=== PATIENT | female | born 1960 | race Caucasian/White ===

== ENCOUNTER 2021-07-09 16:38 | Inpatient (IN) | payer MEDICARE, OTHER ==
[~2021-07-09] VITALS: Ht 170.2 cm; Wt 55.7 kg
[2021-07-09 17:37] VITALS: BP 170/81
[2021-07-09] MEDS ORDERED: TEMAZEPAM 15 MG CAPSULE PO PRN (17:45)
[2021-07-09] MEDS: IV NORMAL SALINE 1000ML BAG 1,000 ML IV SCH (17:54)
[2021-07-09] MEDS ORDERED: POTASSIUM CHLORIDE 20 MEQ TABLET.ER. PO ONE (18:00)
[2021-07-09] MEDS: ONDANSETRON PF 4 MG/2 ML VIAL. IVP PRN (18:02)
--- NOTE | 2021-07-09 18:54 | HP ---
DATE OF SERVICE: 07/09/2021 ADMIT DATE: 07/09/2021 CHIEF COMPLAINT: GI bleed, nausea, vomiting, diarrhea, weakness, recent cholecystectomy. HISTORY OF PRESENT ILLNESS: The patient is a pleasant 60-year-old female who had a laparoscopic cholecystectomy at [facility] 10 days ago, presented to the ER with some rectal bleeding. She also has some nausea, vomiting, and diarrhea. They checked her hemoglobin, it is down to 11.6 from 15.4 just a few days ago. She also has hypokalemia. I discussed the case with the ER physician. We have transferred the patient to the room 563 where she is currently being examined. PAST MEDICAL HISTORY: Laparoscopic cholecystectomy 10 days ago. ALLERGIES: None. FAMILY HISTORY: Diabetes. SOCIAL HISTORY: She does not drink, smoke or take drugs. MEDICATIONS: Reviewed, please refer to the MRAD. REVIEW OF SYSTEMS: GENERAL: No history of weight change, weakness or fevers. SKIN: No bruising, hair changes or rashes. EYES: No blurred, double or loss of vision. NOSE AND THROAT: No history of nosebleeds, hoarseness or sore throat. HEART: No history of palpitations, chest pain or shortness of breath on exertion. LUNGS: Denies cough, hemoptysis, wheezing or shortness of breath. GASTROINTESTINAL: She complains of nausea, vomiting, diarrhea and bloody stools. GENITOURINARY: No history of frequency, urgency, hesitancy or nocturia. NEUROLOGIC: Denies history of numbness, tingling, tremor or weakness. PSYCHIATRIC: No history of panic, anxiety or depression. ENDOCRINE: No history of heat or cold intolerance, polyuria or polydipsia. EXTREMITIES: Denies muscle weakness, joint pain, pain on walking or stiffness. PHYSICAL EXAMINATION: VITALS: Within normal limits and are stable. GENERAL: No apparent distress. Alert and oriented. HEENT: Normal cephalic atraumatic, external auditory canals are patent. Eyes: Extraocular muscles are intact, pupils are equally round and reactive to light and accommodation. MUSCULOSKELETAL: Well developed, well nourished, good range of motion. ENDOCRINE: No thyromegaly was palpated. LYMPHATICS: No cervical chain or axillary nodes were noted. HEMATOPOIETIC: No bruising. NECK: Supple, no JVD, no thyromegaly was noted. LUNGS: Clear to auscultation in all lung ann without rhonchi or wheezing. HEART: RRR, S1, S2 present. Peripheral pulses intact, no obvious murmurs were noted. ABDOMEN: She has clean, dry, intact trocar sites x 3. EXTREMITIES: Without any cyanosis, clubbing, or edema. Pedal pulses intact, Homans sign is negative. NEUROLOGIC: Normal speech, normal tone. A and O x 3, moves all extremities, no obvious focal deficits. PSYCHIATRIC: Normal affect, normal mood. Stable. SKIN: No ulcerations or rashes, good skin turgor, no jaundice. VASCULAR: Good capillary refill, neurovascular bundle appears to be intact. LABORATORY DATA: Shows a hemoglobin of 11.6, potassium is 2.5. ASSESSMENT AND PLAN: Gastrointestinal bleed, nausea, vomiting, anemia, hypokalemia. The patient has been admitted. We will trend her hemoglobin. PRN Zofran. Consult Dr. Kemp. Home meds. DVT prophylaxis. Full code. Gentle IV fluids. ekg monitor. Trend labs. PAULINE/HERNAN DR: PAULINE/katy TID: [id number]
[2021-07-09 19:00] VITALS: BP 175/88
[2021-07-09] MEDS: AA 4.25 %/CALCIUM/LYTES/D5W 1,000 ML IV SCH (20:25)
[2021-07-09 23:00] VITALS: BP 165/85
[2021-07-10 03:00] VITALS: BP 188/86
[2021-07-10] MEDS: IV NORMAL SALINE 1000ML BAG 1,000 ML IV SCH (05:08)
[2021-07-10 06:10] LABS: BASO % 0 % (0-3); EOS # 0.1 x10^3/uL (0.0-0.7); EOS % 1 % (0-3); HEMATOCRIT 29.6 % (36.0-47.0); LYMPH # 1.5 x10^3/uL (1.0-4.8); LYMPH % 15 % (24-48); MEAN CORPUSCULAR HEMOGLOBIN 28 pg (25-35); MEAN CORPUSCULAR HGB CONC 34 g/dL (31-37); MEAN CORPUSCULAR VOLUME 84 fL (79-100); MONO # 0.5 x10^3/uL (0.0-1.1); MONO % 5 % (0-9); NEUT # 7.9 x10^3/uL (1.8-7.7); NEUT % 78 % (31-73); PLATELET COUNT 131 x10^3/uL (140-400); RED BLOOD COUNT 3.53 x10^6/uL (3.50-5.40); RED CELL DISTRIBUTION WIDTH 15.6 % (11.5-14.5); WHITE BLOOD COUNT 10.1 x10^3/uL (4.0-11.0)
[2021-07-10] MEDS: PANTOPRAZOLE IV PUSH 40 MG VIAL. IVP SCH (06:22)
[2021-07-10] MEDS: AA 4.25 %/CALCIUM/LYTES/D5W 1,000 ML IV SCH (06:22)
[2021-07-10 06:32] LABS: CALCIUM 8.2 mg/dL (8.5-10.1); CREATININE 0.8 mg/dL (0.6-1.0); GFR 73.2
[2021-07-10 06:38] LABS: POTASSIUM 2.9 mmol/L (3.5-5.1)
[2021-07-10 07:00] VITALS: BP 180/83
[2021-07-10] MEDS ORDERED: POTASSIUM CHLORIDE 20 MEQ TABLET.ER. PO ONE (08:00)
--- NOTE | 2021-07-10 09:36 | PDOC2 ---
GI CONSULT Date of Service: DATE: 07/10/21 TIME: 09:15 Reason For Consult: GI bleed HPI: HPI: 60 y/o female who is not forthcoming with history. Reviewed [facility] notes: to ER there w/ n/v, abd pain, and dark/black diarrhea. Recent cholecystectomy @ [facility]. Concern for not eating/drinking and not being able to care for self at home. We are asked to see for possible GI bleed. She has not noted any bleeding nor has she stooled since arriving at [facility]. To me, denies reflux/heartburn, dysphagia, n/v, abd pain, diarrhea, constipation, hematochezia, melena, and weight loss. Suspect historian. Tells me stool were "dark brown." No previous EGD. Reports having a colonoscopy at some point - unclear details. Said she had gallstones. Denies liver, pancreas, and PUD history. Denies use of NSAIDs and blood-thinning medications. On CT @ [facility]: interval post cholecystectomy changes with a new small ill-defined fluid collection in subcapsular hepatic segment adjacent to GB fossa (ddx: hematoma, biloma, abscess), borderline right colonic wall thickening w/ adjacent fat stranding, trace pelvic hemoperitoenum (likely postsurgical). Labs there: negative COVID, +Hemoccult, K 2.5, Hgb 11.6, bili 1.8, BUN 51, Cr 1.2, normal lipase, normal lactic. ER note from 06/19/21 mentions h/o fever, chills, cough, abd pain after COVID vaccine, falls at home, possible syncope, possible constipation, and "psoriasis acting up." PMH: PMH: per other notes: HTN, HLD, DM, hypothyroidism, ?psoriasis cholecystectomy, hysterectomy FH: Family History: No pertinent hx (difficult to obtain) Social History: Smoke: Quit (per other notes) ROS: Difficult to obtain. Vitals: Vitals: Vital Signs Date Time Temp Pulse Resp B/P (MAP) Pulse Ox O2 Delivery O2 Flow Rate FiO2 07/10/21 07:00 98.3 79 24 180/83 (115) 97 Room Air 98.3 Labs: Labs: Laboratory Tests Test 07/10/21 05:20 White Blood Count 10.1 x10^3/uL (4.0-11.0) Red Blood Count 3.53 x10^6/uL (3.50-5.40) Hemoglobin 10.0 g/dL (12.0-15.5) Hematocrit 29.6 % (36.0-47.0) Mean Corpuscular Volume 84 fL (79-100) Mean Corpuscular Hemoglobin 28 pg (25-35) Mean Corpuscular Hemoglobin Concent 34 g/dL (31-37) Red Cell Distribution Width 15.6 % (11.5-14.5) Platelet Count 131 x10^3/uL (140-400) Neutrophils (%) (Auto) 78 % (31-73) Lymphocytes (%) (Auto) 15 % (24-48) Monocytes (%) (Auto) 5 % (0-9) Eosinophils (%) (Auto) 1 % (0-3) Basophils (%) (Auto) 0 % (0-3) Neutrophils # (Auto) 7.9 x10^3/uL (1.8-7.7) Lymphocytes # (Auto) 1.5 x10^3/uL (1.0-4.8) Monocytes # (Auto) 0.5 x10^3/uL (0.0-1.1) Eosinophils # (Auto) 0.1 x10^3/uL (0.0-0.7) Basophils # (Auto) 0.0 x10^3/uL (0.0-0.2) Sodium Level 141 mmol/L (136-145) Potassium Level 2.9 mmol/L (3.5-5.1) Chloride Level 104 mmol/L (98-107) Carbon Dioxide Level 27 mmol/L (21-32) Anion Gap 10 (6-14) Blood Urea Nitrogen 38 mg/dL (7-20) Creatinine 0.8 mg/dL (0.6-1.0) Estimated GFR (Cockcroft-Gault) 73.2 Glucose Level 151 mg/dL (70-99) Calcium Level 8.2 mg/dL (8.5-10.1) Allergies: Coded Allergies: No Known Drug Allergies (Unverified , 07/09/21) Medications: Current Medications Medications (Trade) Dose Ordered Sig/Josué Route PRN Reason Start Time Stop Time Status Last Admin Dose Admin Sodium Chloride 1,000 ml @ 75 mls/hr [id number] IV 07/09/21 18:00 07/09/21 17:54 Potassium Chloride (Klor-Con) 40 meq 1X ONCE PO 07/09/21 18:00 07/09/21 18:01 DC 07/09/21 17:54 Temazepam (Restoril) 15 mg PRN QHS PRN PO INSOMNIA 07/09/21 17:45 07/09/21 20:25 Ondansetron HCl (Zofran) 4 mg PRN Q6HRS PRN IVP NAUSEA/VOMITING 07/09/21 17:45 07/09/21 18:02 Pantoprazole Sodium (PROTONIX VIAL for IV PUSH) 40 mg DAILYAC IVP 07/10/21 07:30 07/10/21 06:22 Amino Acids/ Electrolytes/ Dextrose 1,000 ml @ 80 mls/hr [id number] IV 07/09/21 18:45 07/10/21 06:22 Potassium Chloride (Klor-Con) 40 meq 1X ONCE PO 07/10/21 08:00 07/10/21 08:01 DC 07/10/21 08:34 Imaging: Imaging: see HPI PE: GEN: sitting on edge of bed, won't make eye contact, slow to respond to questions, gives one word answers if answers at all HEENT: Atraumatic, PERRL LUNGS: CTAB HEART: RRR ABD: difficult exam - pt remains sitting on edge of bed - soft, seems non- tender, quiet BS EXTREMITY: No edema SKIN: +tattoos NEURO/PSYCH: awake and alert, decreased mentation A/P: A/P: ?n/v ?abd pain ?diarrhea/dark stools Mild anemia - Hgb drifitng, +Hemoccult Abnormal CT - interval post cholecystectomy changes with a new small ill- defined fluid collection in subcapsular hepatic segment adjacent to GB fossa, borderline right colonic wall thickening w/ adjacent fat stranding, trace pelvic hemoperitoenum CRC screen - she reports having colonoscopy in the past, details unclear Recent cholecystectomy COVID negative HTN, hypokalemia - per primary -- Difficult historian. Has clears ordered for breakfast - await this. On IV PPI - agree. Follow labs. Check anemia parameters. Monitor stools and for bleeding. Check stool studies. Will review CT findings of fluid collection and hemoperitoneum with Dr. Kemp - additional recs pending. MAIKOL FELICIANO Jul 10, 2021 09:36
--- NOTE | 2021-07-10 10:04 | PDOC ---
[employer] PROGRESS NOTE Date of Service DOS: DATE: 07/10/21 TIME: 10:04 Chief Complaint Chief Complaint A/P: Blood in stool - GI consulted N/V/D - improved Anemia - +Hemoccult Thrombocytopenia - likely from underlying previously undiagnosed liver disease Abnormal CT - interval post cholecystectomy changes with a new small ill- defined fluid collection in subcapsular hepatic segment adjacent to GB fossa, borderline right colonic wall thickening w/ adjacent fat stranding, trace pelvic hemoperitoenum Recent cholecystectomy COVID negative HTN, hypokalemia - check mag, replace History of Present Illness History of Present Illness Ms Murphy is a 60-year-old female who had a laparoscopic cholecystectomy at [facility] 10 days ago, presented to the ER at [facility] with some rectal bleeding. She also has some nausea, vomiting, and diarrhea. She has been confused and unable to care for herself at home. They checked her hemoglobin, it is down to 11.6 from 15.4 just a few days ago. She also has hypokalemia and thrombocytopenia. Confused this morning. No pain complaints. Not oriented K 2.9 Vitals/I&O Vitals/I&O: Vital Signs Date Time Temp Pulse Resp B/P (MAP) Pulse Ox O2 Delivery O2 Flow Rate FiO2 07/10/21 07:00 98.3 79 24 180/83 (115) 97 Room Air 98.3 I & O 07/09/21 07/09/21 07/10/21 15:00 23:00 07:00 Intake Total 120 ml 400 ml Balance 120 ml 400 ml Physical Exam Lungs: Clear Abdomen: Normal bowel sounds Labs Labs: Laboratory Tests Test 07/10/21 05:20 White Blood Count 10.1 x10^3/uL (4.0-11.0) Red Blood Count 3.53 x10^6/uL (3.50-5.40) Hemoglobin 10.0 g/dL (12.0-15.5) Hematocrit 29.6 % (36.0-47.0) Mean Corpuscular Volume 84 fL (79-100) Mean Corpuscular Hemoglobin 28 pg (25-35) Mean Corpuscular Hemoglobin Concent 34 g/dL (31-37) Red Cell Distribution Width 15.6 % (11.5-14.5) Platelet Count 131 x10^3/uL (140-400) Neutrophils (%) (Auto) 78 % (31-73) Lymphocytes (%) (Auto) 15 % (24-48) Monocytes (%) (Auto) 5 % (0-9) Eosinophils (%) (Auto) 1 % (0-3) Basophils (%) (Auto) 0 % (0-3) Neutrophils # (Auto) 7.9 x10^3/uL (1.8-7.7) Lymphocytes # (Auto) 1.5 x10^3/uL (1.0-4.8) Monocytes # (Auto) 0.5 x10^3/uL (0.0-1.1) Eosinophils # (Auto) 0.1 x10^3/uL (0.0-0.7) Basophils # (Auto) 0.0 x10^3/uL (0.0-0.2) Sodium Level 141 mmol/L (136-145) Potassium Level 2.9 mmol/L (3.5-5.1) Chloride Level 104 mmol/L (98-107) Carbon Dioxide Level 27 mmol/L (21-32) Anion Gap 10 (6-14) Blood Urea Nitrogen 38 mg/dL (7-20) Creatinine 0.8 mg/dL (0.6-1.0) Estimated GFR (Cockcroft-Gault) 73.2 Glucose Level 151 mg/dL (70-99) Calcium Level 8.2 mg/dL (8.5-10.1) Comment Review of Relevant I have reviewed the following items khai (where applicable) has been applied. Medications: Current Medications Medications (Trade) Dose Ordered Sig/Josué Route PRN Reason Start Time Stop Time Status Last Admin Dose Admin Sodium Chloride 1,000 ml @ 75 mls/hr [id number] IV 07/09/21 18:00 07/09/21 17:54 Potassium Chloride (Klor-Con) 40 meq 1X ONCE PO 07/09/21 18:00 07/09/21 18:01 DC 07/09/21 17:54 Temazepam (Restoril) 15 mg PRN QHS PRN PO INSOMNIA 07/09/21 17:45 07/09/21 20:25 Ondansetron HCl (Zofran) 4 mg PRN Q6HRS PRN IVP NAUSEA/VOMITING 07/09/21 17:45 07/09/21 18:02 Pantoprazole Sodium (PROTONIX VIAL for IV PUSH) 40 mg DAILYAC IVP 07/10/21 07:30 07/10/21 06:22 Amino Acids/ Electrolytes/ Dextrose 1,000 ml @ 80 mls/hr [id number] IV 07/09/21 18:45 07/10/21 06:22 Potassium Chloride (Klor-Con) 40 meq 1X ONCE PO 07/10/21 08:00 07/10/21 08:01 DC 07/10/21 08:34 Justifications for Admission Other Justification SONIA OBANDO MD Jul 10, 2021 10:04
[2021-07-10 11:00] VITALS: BP 150/80
[2021-07-10 13:04] LABS: ALBUMIN 2.8 g/dL (3.4-5.0); DIRECT BILIRUBIN 0.6 mg/dL (0.0-0.2); TOTAL BILIRUBIN 1.6 mg/dL (0.2-1.0); TOTAL PROTEIN 6.1 g/dL (6.4-8.2)
[2021-07-10 15:00] VITALS: BP 150/66
--- NOTE | 2021-07-10 15:23 | PDOC2 ---
NEUROLOGY CONSULT Date of Service DOS: DATE: 07/10/21 TIME: 15:12 Reason for Consult Reason for Consult: Encephalopathy Referring Physician Referring Physician: Dr. Coleman Source Source: Caregiver (Son), Chart review, Patient History of Present Illness History of Present Illness The patient is a 60-year-old right-handed female who has not felt well for several weeks. She has had abdominal pain, decreased appetite, fevers, chills, cough. This may have all started after second Covid vaccination on May 15. Dr. Gudino, primary care physician, saw the patient several times and lawanda a large amount of labs. She was scheduled for a CT scan at [facility] but instead the son brought her to the [facility] emergency room on 06/19. She had a CT of the head, abdomen, pelvis, as reviewed below. She then went to [facility] where she underwent a laparoscopic cholecystectomy approximately 07/01. She was released on July 07. Son notes that he could not get his mother out of bed, she was very weak, more lethargic. He brought her to the [facility] emergency department last night and she was sent down here. At [facility] she was found to have abnormal labs as listed below She had another CT abdomen and pelvis last night at [facility], as reviewed below. Dr. Gudino has been adjusting her thyroid medications. On closer questioning, patient son says that she has not driven for more than 10 years. She has been living with him for 2 years. She has been forgetful but has refused to get evaluated for this. There is no history of stroke, seizure, or head injury. 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 Past Medical History Cardiovascular: HTN Past Surgical History Past Surgical History: Breast Biopsy, Cholecystectomy (Laparoscopic, 07/01/21), Tubal Ligation Family History Family History: DM Social History Social History , lives with son, does smoke occasional cigarettes, no alcohol or street drugs. Current Medications Current Medications Current Medications Sodium Chloride 1,000 ml @ 75 mls/hr [id number] IV Last administered on 07/09at 17:54; Start 07/09/21 at 18:00 Potassium Chloride (Klor-Con) 40 meq 1X ONCE PO Last administered on 07/09/21at 17:54; Start 07/09/21 at 18:00; Stop 07/09/21 at 18:01; Status DC Temazepam (Restoril) 15 mg PRN QHS PRN PO INSOMNIA Last administered on 07/09/21at 20:25; Start 07/09/21 at 17:45 Ondansetron HCl (Zofran) 4 mg PRN Q6HRS PRN IVP NAUSEA/VOMITING Last administe red on 07/09/21at 18:02; Start 07/09/21 at 17:45 Pantoprazole Sodium (PROTONIX VIAL for IV PUSH) 40 mg DAILYAC IVP Last admini stered on 07/10/21at 06:22; Start 07/10/21 at 07:30 Amino Acids/ Electrolytes/ Dextrose 1,000 ml @ 80 mls/hr [id number] IV Last administered on 07/10/21at 06:22; Start 07/09/21 at 18:45 Potassium Chloride (Klor-Con) 40 meq 1X ONCE PO Last administered on 07/10/21at 08:34; Start 07/10/21 at 08:00; Stop 07/10/21 at 08:01; Status DC Active Scripts Active Reported No Known Medications Prior To Admisstion (Info) Each 1 Each NA Allergies Allergies: Coded Allergies: No Known Drug Allergies (Unverified , 07/09/21) ROS Review of System Negative for fever, chills, weight loss, shortness of breath, chest pain, indigestion, hematochezia, melena, and dysuria. Full 14-point review of systems is negative. Physical Exam Physical Examination General: Well-developed, well-nourished, white female, in no acute distress HEENT: Normocephalic andatraumatic. Temporal arteriespulsatile and nontender. Neck: Supple without bruit, no meningismus Musculoskeletal: Stability:see neurologic. Gait exam:see neurologic. Tone:see neurologic.Strength:see neurologic. Neurological: Mental Status: orientation, memory, attention span/concentration, language, fund of knowledge: Does not know date, thinks she is at [facility], does not know why she is here, very poor historian, names and repeats well. Cranial Nerves:Pupils equal and reactive to light, extraocular movements areintact, visual nan are full to confrontation. Facial sensation is normal. There is no facial asymmetry. Vestibulo-ocular reflex is intact. Palate elevates and tongue protrudes in midline. All other cranial related problems are negative except as mentioned before.Reflexes:2+ and symmetric with flexor plantar responses. Bilateral grasp reflexes. Motor:45/5 strength with normal tone and bulk. Coordination:Finger-nose finger and [id number] testing are normal. Rapid alternating movements and fine finger movements are intact. Gait:Not tested. Sensory:Normal pinprick, vibration, light touch, proprioception. Vitals VITALS Vital Signs Date Time Temp Pulse Resp B/P (MAP) Pulse Ox O2 Delivery O2 Flow Rate FiO2 07/10/21 11:00 97.3 89 20 150/80 (103) 96 Room Air 97.3 Labs Labs [facility], 07/09: white blood count 12.6, hemoglobin 11.6, hematocrit 35.0, potassium 2.5, BUN 51, creatinine 1.1, glucose 123, bilirubin 1.9, CPK 25, protein 6.1, albumin 3.2, Covid negative, stool occult positive. Laboratory Tests Test 07/10/21 05:20 07/10/21 11:39 White Blood Count 10.1 x10^3/uL (4.0-11.0) Red Blood Count 3.53 x10^6/uL (3.50-5.40) Hemoglobin 10.0 g/dL (12.0-15.5) Hematocrit 29.6 % (36.0-47.0) Mean Corpuscular Volume 84 fL (79-100) Mean Corpuscular Hemoglobin 28 pg (25-35) Mean Corpuscular Hemoglobin Concent 34 g/dL (31-37) Red Cell Distribution Width 15.6 % (11.5-14.5) Platelet Count 131 x10^3/uL (140-400) Neutrophils (%) (Auto) 78 % (31-73) Lymphocytes (%) (Auto) 15 % (24-48) Monocytes (%) (Auto) 5 % (0-9) Eosinophils (%) (Auto) 1 % (0-3) Basophils (%) (Auto) 0 % (0-3) Neutrophils # (Auto) 7.9 x10^3/uL (1.8-7.7) Lymphocytes # (Auto) 1.5 x10^3/uL (1.0-4.8) Monocytes # (Auto) 0.5 x10^3/uL (0.0-1.1) Eosinophils # (Auto) 0.1 x10^3/uL (0.0-0.7) Basophils # (Auto) 0.0 x10^3/uL (0.0-0.2) Sodium Level 141 mmol/L (136-145) Potassium Level 2.9 mmol/L (3.5-5.1) Chloride Level 104 mmol/L (98-107) Carbon Dioxide Level 27 mmol/L (21-32) Anion Gap 10 (6-14) Blood Urea Nitrogen 38 mg/dL (7-20) Creatinine 0.8 mg/dL (0.6-1.0) Estimated GFR (Cockcroft-Gault) 73.2 Glucose Level 151 mg/dL (70-99) Calcium Level 8.2 mg/dL (8.5-10.1) Magnesium Level 2.0 mg/dL (1.8-2.4) Iron Level 140 ug/dL (50-170) Total Iron Binding Capacity 146 ug/dL (250-450) Iron Saturation 96 % (15-34) Vitamin B12 Level 500 pg/mL (247-911) Total Bilirubin 1.6 mg/dL (0.2-1.0) Direct Bilirubin 0.6 mg/dL (0.0-0.2) Aspartate Amino Transf (AST/SGOT) 34 U/L (15-37) Alanine Aminotransferase (ALT/SGPT) 31 U/L (14-59) Alkaline Phosphatase 70 U/L (46-116) Ammonia 15 mcmol/L (11-34) Total Protein 6.1 g/dL (6.4-8.2) Albumin 2.8 g/dL (3.4-5.0) Laboratory Tests Test 07/10/21 05:20 07/10/21 11:39 White Blood Count 10.1 x10^3/uL (4.0-11.0) Red Blood Count 3.53 x10^6/uL (3.50-5.40) Hemoglobin 10.0 g/dL (12.0-15.5) Hematocrit 29.6 % (36.0-47.0) Mean Corpuscular Volume 84 fL (79-100) Mean Corpuscular Hemoglobin 28 pg (25-35) Mean Corpuscular Hemoglobin Concent 34 g/dL (31-37) Red Cell Distribution Width 15.6 % (11.5-14.5) Platelet Count 131 x10^3/uL (140-400) Neutrophils (%) (Auto) 78 % (31-73) Lymphocytes (%) (Auto) 15 % (24-48) Monocytes (%) (Auto) 5 % (0-9) Eosinophils (%) (Auto) 1 % (0-3) Basophils (%) (Auto) 0 % (0-3) Neutrophils # (Auto) 7.9 x10^3/uL (1.8-7.7) Lymphocytes # (Auto) 1.5 x10^3/uL (1.0-4.8) Monocytes # (Auto) 0.5 x10^3/uL (0.0-1.1) Eosinophils # (Auto) 0.1 x10^3/uL (0.0-0.7) Basophils # (Auto) 0.0 x10^3/uL (0.0-0.2) Sodium Level 141 mmol/L (136-145) Potassium Level 2.9 mmol/L (3.5-5.1) Chloride Level 104 mmol/L (98-107) Carbon Dioxide Level 27 mmol/L (21-32) Anion Gap 10 (6-14) Blood Urea Nitrogen 38 mg/dL (7-20) Creatinine 0.8 mg/dL (0.6-1.0) Estimated GFR (Cockcroft-Gault) 73.2 Glucose Level 151 mg/dL (70-99) Calcium Level 8.2 mg/dL (8.5-10.1) Magnesium Level 2.0 mg/dL (1.8-2.4) Iron Level 140 ug/dL (50-170) Total Iron Binding Capacity 146 ug/dL (250-450) Iron Saturation 96 % (15-34) Vitamin B12 Level 500 pg/mL (247-911) Total Bilirubin 1.6 mg/dL (0.2-1.0) Direct Bilirubin 0.6 mg/dL (0.0-0.2) Aspartate Amino Transf (AST/SGOT) 34 U/L (15-37) Alanine Aminotransferase (ALT/SGPT) 31 U/L (14-59) Alkaline Phosphatase 70 U/L (46-116) Ammonia 15 mcmol/L (11-34) Total Protein 6.1 g/dL (6.4-8.2) Albumin 2.8 g/dL (3.4-5.0) Images Images CT head without contrast 06/19/2021 11:35 AM Ventricles, sulci and basal cisterns are within normal limits. Low-attenuation in the periventricular white matter is suggestive of chronic small vessel ischemic changes. There is no hydrocephalus. Ramon-white matter differentiation is normal. There is no acute intracranial hemorrhage. There is no mass, mass effect or midline shift. Posterior fossa is normal in appearance. Visualized portions of the orbits are normal. Paranasal sinuses are well aerated. Mastoid air cells are well aerated. Scalp and calvaria are normal. IMPRESSION: No acute intracranial hemorrhage. Low-attenuation in the periventricular white matter is suggestive of chronic small vessel ischemic changes. CT of the abdomen and pelvis/ 06/19: fullness of the pancreatic body, 3.6 cm hypoattenuating area in the hepatic segment 4 adjacent to the falciform ligament, favors focal fat infiltration, chronic diverticulosis, tiny calcified cholelithiasis. CT abdomen and pelvis, 07/09 at [facility]: there was interval post cholecystectomy changes with a new small ill-defined fluid collection in subcapsular hepatic segment 5 adjacent to the gallbladder fossa, borderline right colonic wall thickening with adjacent fat stranding, may be reactive from recent surgery or related to infectious/inflammatory colitis and trace amount of pelvic hemoperitoneum. Assessment/Plan Assessment/Plan Impression: From discussion with the son, and given the bilateral grasp reflexes, as well as bedside mental status testing, I get the impression that she has had longstanding dementia which has been getting worse. Most likely this is early- onset Alzheimer's disease. She did just have a head CT 3 weeks ago, there are no focal findings on examination that require me to repeat this but I will consider getting an MRI of the brain later on if necessary. She certainly has some number of metabolic issues including leukocytosis, anemia with GI bleeding and hemoperitoneum, hyperbilirubinemia, hyperglycemia, protein calorie malnutrition. Recommendations: Additional laboratory studies, I am especially interested in thyroid studies as Dr. Gudino has been adjusting her thyroid medication, also we do not have her home medications yet. Treat medical diseases Holding on additional studies such as repeat CT head, MRI, lumbar puncture Fully discussed with patient's son. Also discussed with Dr. Coleman Thank you for letting me help with the patient's care. KWASI KRISHNAMURTHY MD Jul 10, 2021 15:23
--- NOTE | 2021-07-10 15:40 | NUR ---
SS following for discharge planning. SS reviewed pt chart and discussed with pt RN. Pt is from home with son and is currently on room air. Potassium low today. Pt confused. Pt on Clinimix. GI consulted. PT/OT ordered. SS will continue to follow for discharge planning.
[2021-07-10 19:00] VITALS: BP 161/88
[2021-07-10 23:02] VITALS: BP 164/81
[2021-07-11 03:02] VITALS: BP 165/87
[2021-07-11 07:00] VITALS: BP 168/90
[2021-07-11 07:36] LABS: BASO % 0 % (0-3); EOS # 0.1 x10^3/uL (0.0-0.7); EOS % 2 % (0-3); HEMATOCRIT 30.4 % (36.0-47.0); HEMOGLOBIN 10.3 g/dL (12.0-15.5); LYMPH # 1.4 x10^3/uL (1.0-4.8); LYMPH % 18 % (24-48); MEAN CORPUSCULAR HEMOGLOBIN 28 pg (25-35); MEAN CORPUSCULAR HGB CONC 34 g/dL (31-37); MEAN CORPUSCULAR VOLUME 83 fL (79-100); MONO # 0.3 x10^3/uL (0.0-1.1); MONO % 3 % (0-9); NEUT # 5.9 x10^3/uL (1.8-7.7); NEUT % 77 % (31-73); PLATELET COUNT 123 x10^3/uL (140-400); RED BLOOD COUNT 3.66 x10^6/uL (3.50-5.40); RED CELL DISTRIBUTION WIDTH 15.3 % (11.5-14.5); WHITE BLOOD COUNT 7.7 x10^3/uL (4.0-11.0)
[2021-07-11 08:06] LABS: ALBUMIN 2.5 g/dL (3.4-5.0); CALCIUM 7.9 mg/dL (8.5-10.1); CREATININE 0.8 mg/dL (0.6-1.0); DIRECT BILIRUBIN 0.6 mg/dL (0.0-0.2); GFR 73.2; TOTAL BILIRUBIN 1.4 mg/dL (0.2-1.0); TOTAL PROTEIN 5.5 g/dL (6.4-8.2)
[2021-07-11] MEDS: AA 4.25 %/CALCIUM/LYTES/D5W 1,000 ML IV SCH ×3 (08:15→20:45)
[2021-07-11 08:23] LABS: POTASSIUM 2.7 mmol/L (3.5-5.1)
[2021-07-11] MEDS: PANTOPRAZOLE IV PUSH 40 MG VIAL. IVP SCH (08:29)
--- NOTE | 2021-07-11 08:31 | PDOC ---
[employer] PROGRESS NOTE Date of Service DOS: DATE: 07/11/21 TIME: 08:31 Chief Complaint Chief Complaint A/P: Blood in stool - GI consulted N/V/D - improved Anemia - +Hemoccult Thrombocytopenia - likely from underlying previously undiagnosed liver disease Abnormal CT - interval post cholecystectomy changes with a new small ill- defined fluid collection in subcapsular hepatic segment adjacent to GB fossa, borderline right colonic wall thickening w/ adjacent fat stranding, trace pelvic hemoperitoenum Recent cholecystectomy COVID negative HTN, hypokalemia - check mag, replace History of Present Illness History of Present Illness Ms Murphy is a 60-year-old female who had a laparoscopic cholecystectomy at [facility] 10 days ago, presented to the ER at [facility] with some rectal bleeding. She also has some nausea, vomiting, and diarrhea. She has been confused and unable to care for herself at home. They checked her hemoglobin, it is down to 11.6 from 15.4 just a few days ago. She also has hypokalemia and thrombocytopenia. 07/10: Confused this morning. No pain complaints. Not oriented K 2.9 Still confused today. No pain complaints. K 2.7 despite replacement. Vitals/I&O Vitals/I&O: Vital Signs Date Time Temp Pulse Resp B/P (MAP) Pulse Ox O2 Delivery O2 Flow Rate FiO2 07/11/21 07:00 97.6 88 18 168/90 (116) 98 Room Air 97.6 I & O 07/10/21 07/10/21 07/11/21 14:59 22:59 06:59 Intake Total 0 ml Output Total 0 ml Balance 0 ml 0 ml Physical Exam Lungs: Clear Abdomen: Normal bowel sounds Labs Labs: Laboratory Tests Test 07/10/21 11:39 07/11/21 07:05 Total Bilirubin 1.6 mg/dL (0.2-1.0) 1.4 mg/dL (0.2-1.0) Direct Bilirubin 0.6 mg/dL (0.0-0.2) 0.6 mg/dL (0.0-0.2) Aspartate Amino Transf (AST/SGOT) 34 U/L (15-37) 30 U/L (15-37) Alanine Aminotransferase (ALT/SGPT) 31 U/L (14-59) 40 U/L (14-59) Alkaline Phosphatase 70 U/L (46-116) 65 U/L (46-116) Ammonia 15 mcmol/L (11-34) 23 mcmol/L (11-34) Total Protein 6.1 g/dL (6.4-8.2) 5.5 g/dL (6.4-8.2) Albumin 2.8 g/dL (3.4-5.0) 2.5 g/dL (3.4-5.0) White Blood Count 7.7 x10^3/uL (4.0-11.0) Red Blood Count 3.66 x10^6/uL (3.50-5.40) Hemoglobin 10.3 g/dL (12.0-15.5) Hematocrit 30.4 % (36.0-47.0) Mean Corpuscular Volume 83 fL (79-100) Mean Corpuscular Hemoglobin 28 pg (25-35) Mean Corpuscular Hemoglobin Concent 34 g/dL (31-37) Red Cell Distribution Width 15.3 % (11.5-14.5) Platelet Count 123 x10^3/uL (140-400) Neutrophils (%) (Auto) 77 % (31-73) Lymphocytes (%) (Auto) 18 % (24-48) Monocytes (%) (Auto) 3 % (0-9) Eosinophils (%) (Auto) 2 % (0-3) Basophils (%) (Auto) 0 % (0-3) Neutrophils # (Auto) 5.9 x10^3/uL (1.8-7.7) Lymphocytes # (Auto) 1.4 x10^3/uL (1.0-4.8) Monocytes # (Auto) 0.3 x10^3/uL (0.0-1.1) Eosinophils # (Auto) 0.1 x10^3/uL (0.0-0.7) Basophils # (Auto) 0.0 x10^3/uL (0.0-0.2) Sodium Level 134 mmol/L (136-145) Potassium Level 2.7 mmol/L (3.5-5.1) Chloride Level 99 mmol/L (98-107) Carbon Dioxide Level 27 mmol/L (21-32) Anion Gap 8 (6-14) Blood Urea Nitrogen 26 mg/dL (7-20) Creatinine 0.8 mg/dL (0.6-1.0) Estimated GFR (Cockcroft-Gault) 73.2 Glucose Level 167 mg/dL (70-99) Calcium Level 7.9 mg/dL (8.5-10.1) Thyroid Stimulating Hormone (TSH) 4.704 uIU/mL (0.358-3.74) Comment Review of Relevant I have reviewed the following items khai (where applicable) has been applied. Justifications for Admission Other Justification SONIA OBANDO MD Jul 11, 2021 08:31
[2021-07-11] MEDS: IV NORMAL SALINE 1000ML BAG 1,000 ML IV SCH ×2 (08:32→08:34)
[2021-07-11] MEDS ORDERED: POTASSIUM CHLORIDE 20MEQ 100 ML IV ONE (09:00)
[2021-07-11] MEDS: POTASSIUM CHLORIDE 20 MEQ TABLET.ER. PO ONE ×2 (09:00→09:48)
[2021-07-11] MEDS: ONDANSETRON PF 4 MG/2 ML VIAL. IVP PRN (09:48)
--- NOTE | 2021-07-11 09:48 | PDOC ---
Date of Service: DATE: 07/11/21 TIME: 09:39 Subjective: Subjective: Staff present changing bedding/cleaning up - they report stool w/o blood. Hasn't touched clear liquid tray this morning, didn't eat anything yesterday. The patient does not verbalize during my interview. Objective: Objective: Reviewed neuro note - suspect dementia/early-onset Alzheimer's - had unremarkable head CT recently. Ammonia normal x 2, Hgb and bili a bit better. Stool tests, UA, and tox screen uncollected. Vital Signs: Vital Signs Date Time Temp Pulse Resp B/P (MAP) Pulse Ox O2 Delivery O2 Flow Rate FiO2 07/11/21 07:00 97.6 88 18 168/90 (116) 98 Room Air 97.6 Labs: Laboratory Tests Test 07/10/21 11:39 07/11/21 07:05 Total Bilirubin 1.6 mg/dL 1.4 mg/dL Direct Bilirubin 0.6 mg/dL 0.6 mg/dL Aspartate Amino Transf (AST/SGOT) 34 U/L 30 U/L Alanine Aminotransferase (ALT/SGPT) 31 U/L 40 U/L Alkaline Phosphatase 70 U/L 65 U/L Ammonia 15 mcmol/L 23 mcmol/L Total Protein 6.1 g/dL 5.5 g/dL Albumin 2.8 g/dL 2.5 g/dL White Blood Count 7.7 x10^3/uL Red Blood Count 3.66 x10^6/uL Hemoglobin 10.3 g/dL Hematocrit 30.4 % Mean Corpuscular Volume 83 fL Mean Corpuscular Hemoglobin 28 pg Mean Corpuscular Hemoglobin Concent 34 g/dL Red Cell Distribution Width 15.3 % Platelet Count 123 x10^3/uL Neutrophils (%) (Auto) 77 % Lymphocytes (%) (Auto) 18 % Monocytes (%) (Auto) 3 % Eosinophils (%) (Auto) 2 % Basophils (%) (Auto) 0 % Neutrophils # (Auto) 5.9 x10^3/uL Lymphocytes # (Auto) 1.4 x10^3/uL Monocytes # (Auto) 0.3 x10^3/uL Eosinophils # (Auto) 0.1 x10^3/uL Basophils # (Auto) 0.0 x10^3/uL Erythrocyte Sedimentation Rate 13 Sodium Level 134 mmol/L Potassium Level 2.7 mmol/L Chloride Level 99 mmol/L Carbon Dioxide Level 27 mmol/L Anion Gap 8 Blood Urea Nitrogen 26 mg/dL Creatinine 0.8 mg/dL Estimated GFR (Cockcroft-Gault) 73.2 Glucose Level 167 mg/dL Calcium Level 7.9 mg/dL Thyroid Stimulating Hormone (TSH) 4.704 uIU/mL PE: GEN: NAD LUNGS: clear anteriorly, poor effort HEART: RRR ABD: soft, non-tender NEURO/PSYCH: awake, does not verbalize A/P: Confusion, suspected dementia ?diarrhea - currently no concern for GI bleeding Mild anemia, +Hemoccult - Hgb stable, not iron or B12 deficient Hypokalemia, elevated TSH Abnormal CT - borderline right colonic wall thickening w/ adjacent fat stranding, trace pelvic hemoperitoenum Recent cholecystectomy, small fluid collection adjacent to GB fossa on CT - no abdominal pain COVID negative -- Okay to advance diet per GI if mental status allows. Change to PO PPI. Observe. Justicifation of Admission Dx: Justifications for Admission: Justification of Admission Dx: Yes MAIKOL FELICIANO Jul 11, 2021 09:48
--- NOTE | 2021-07-11 10:15 | NUR ---
Pt took one tab (20mEq) of KCL. When trying to get patient to take second pill, pt looked at this RN and stated "Shut the fuck up." Dr. Coleman notified. Medication orders edited. Will continue to monitor.
[2021-07-11 11:00] VITALS: BP 209/99
[2021-07-11] MEDS ORDERED: hydrALAZINE 20 MG/ML VIAL. IVP PRN (11:45)
[2021-07-11] MEDS: POTASSIUM CHLORIDE 20MEQ 100 ML IV SCH ×2 (12:17→13:00)
--- NOTE | 2021-07-11 12:37 | PDOC ---
PROGRESS NOTES Date of Service DATE: 07/11/21 TIME: 12:33 Assessment Suspect longstanding dementia, most likely early-onset Alzheimer's disease. Labs I ordered positive for slightly elevated TSH, she is still not on her thyroid here in the hospital Metabolic issues including leukocytosis, anemia with GI bleeding and hemoperi toneum, hyperbilirubinemia, hyperglycemia, protein calorie malnutrition, thrombocytopenia, hypokalemia. Plan Asked nurse to find out thyroid medication dose from the patient's son Treat medical diseases Holding on additional studies such as repeat CT head, MRI, lumbar puncture Subjective She denies pain Objective Vital Signs Date Time Temp Pulse Resp B/P (MAP) Pulse Ox O2 Delivery O2 Flow Rate FiO2 07/11/21 12:15 107 209/99 07/11/21 11:00 97.3 18 99 97.3 07/11/21 08:00 Room Air Intake and Output 07/11/21 07:00 Intake Total 0 ml Output Total 0 ml Balance 0 ml Intake Oral 0 ml Output Urine Total 0 ml # Voids 6 # Bowel Movements 2 PHYSICAL EXAM Alert. Oriented to person, does not know name of hospital or date, does not know the name of the president. PERRL. EOMI. CN: no focal findings. Muscle tone: normal. Muscle strength: 4/5 DTR: 2+ Plantar reflex: Flexor Gait: not examined in bed. Sensory exam: no abnormal findings. No cerebellar signs elicited. Review of Relevant I have reviewed the following items khai (where applicable) has been applied. Labs Laboratory Tests Test 07/10/21 05:20 07/10/21 11:39 07/11/21 07:05 White Blood Count 10.1 x10^3/uL (4.0-11.0) 7.7 x10^3/uL (4.0-11.0) Red Blood Count 3.53 x10^6/uL (3.50-5.40) 3.66 x10^6/uL (3.50-5.40) Hemoglobin 10.0 g/dL (12.0-15.5) 10.3 g/dL (12.0-15.5) Hematocrit 29.6 % (36.0-47.0) 30.4 % (36.0-47.0) Mean Corpuscular Volume 84 fL (79-100) 83 fL (79-100) Mean Corpuscular Hemoglobin 28 pg (25-35) 28 pg (25-35) Mean Corpuscular Hemoglobin Concent 34 g/dL (31-37) 34 g/dL (31-37) Red Cell Distribution Width 15.6 % (11.5-14.5) 15.3 % (11.5-14.5) Platelet Count 131 x10^3/uL (140-400) 123 x10^3/uL (140-400) Neutrophils (%) (Auto) 78 % (31-73) 77 % (31-73) Lymphocytes (%) (Auto) 15 % (24-48) 18 % (24-48) Monocytes (%) (Auto) 5 % (0-9) 3 % (0-9) Eosinophils (%) (Auto) 1 % (0-3) 2 % (0-3) Basophils (%) (Auto) 0 % (0-3) 0 % (0-3) Neutrophils # (Auto) 7.9 x10^3/uL (1.8-7.7) 5.9 x10^3/uL (1.8-7.7) Lymphocytes # (Auto) 1.5 x10^3/uL (1.0-4.8) 1.4 x10^3/uL (1.0-4.8) Monocytes # (Auto) 0.5 x10^3/uL (0.0-1.1) 0.3 x10^3/uL (0.0-1.1) Eosinophils # (Auto) 0.1 x10^3/uL (0.0-0.7) 0.1 x10^3/uL (0.0-0.7) Basophils # (Auto) 0.0 x10^3/uL (0.0-0.2) 0.0 x10^3/uL (0.0-0.2) Sodium Level 141 mmol/L (136-145) 134 mmol/L (136-145) Potassium Level 2.9 mmol/L (3.5-5.1) 2.7 mmol/L (3.5-5.1) Chloride Level 104 mmol/L (98-107) 99 mmol/L (98-107) Carbon Dioxide Level 27 mmol/L (21-32) 27 mmol/L (21-32) Anion Gap 10 (6-14) 8 (6-14) Blood Urea Nitrogen 38 mg/dL (7-20) 26 mg/dL (7-20) Creatinine 0.8 mg/dL (0.6-1.0) 0.8 mg/dL (0.6-1.0) Estimated GFR (Cockcroft-Gault) 73.2 73.2 Glucose Level 151 mg/dL (70-99) 167 mg/dL (70-99) Calcium Level 8.2 mg/dL (8.5-10.1) 7.9 mg/dL (8.5-10.1) Magnesium Level 2.0 mg/dL (1.8-2.4) Iron Level 140 ug/dL (50-170) Total Iron Binding Capacity 146 ug/dL (250-450) Iron Saturation 96 % (15-34) Vitamin B12 Level 500 pg/mL (247-911) Total Bilirubin 1.6 mg/dL (0.2-1.0) 1.4 mg/dL (0.2-1.0) Direct Bilirubin 0.6 mg/dL (0.0-0.2) 0.6 mg/dL (0.0-0.2) Aspartate Amino Transf (AST/SGOT) 34 U/L (15-37) 30 U/L (15-37) Alanine Aminotransferase (ALT/SGPT) 31 U/L (14-59) 40 U/L (14-59) Alkaline Phosphatase 70 U/L (46-116) 65 U/L (46-116) Ammonia 15 mcmol/L (11-34) 23 mcmol/L (11-34) Total Protein 6.1 g/dL (6.4-8.2) 5.5 g/dL (6.4-8.2) Albumin 2.8 g/dL (3.4-5.0) 2.5 g/dL (3.4-5.0) Erythrocyte Sedimentation Rate 13 (0-25) Thyroid Stimulating Hormone (TSH) 4.704 uIU/mL (0.358-3.74) Laboratory Tests Test 07/11/21 07:05 White Blood Count 7.7 x10^3/uL (4.0-11.0) Red Blood Count 3.66 x10^6/uL (3.50-5.40) Hemoglobin 10.3 g/dL (12.0-15.5) Hematocrit 30.4 % (36.0-47.0) Mean Corpuscular Volume 83 fL (79-100) Mean Corpuscular Hemoglobin 28 pg (25-35) Mean Corpuscular Hemoglobin Concent 34 g/dL (31-37) Red Cell Distribution Width 15.3 % (11.5-14.5) Platelet Count 123 x10^3/uL (140-400) Neutrophils (%) (Auto) 77 % (31-73) Lymphocytes (%) (Auto) 18 % (24-48) Monocytes (%) (Auto) 3 % (0-9) Eosinophils (%) (Auto) 2 % (0-3) Basophils (%) (Auto) 0 % (0-3) Neutrophils # (Auto) 5.9 x10^3/uL (1.8-7.7) Lymphocytes # (Auto) 1.4 x10^3/uL (1.0-4.8) Monocytes # (Auto) 0.3 x10^3/uL (0.0-1.1) Eosinophils # (Auto) 0.1 x10^3/uL (0.0-0.7) Basophils # (Auto) 0.0 x10^3/uL (0.0-0.2) Erythrocyte Sedimentation Rate 13 (0-25) Sodium Level 134 mmol/L (136-145) Potassium Level 2.7 mmol/L (3.5-5.1) Chloride Level 99 mmol/L (98-107) Carbon Dioxide Level 27 mmol/L (21-32) Anion Gap 8 (6-14) Blood Urea Nitrogen 26 mg/dL (7-20) Creatinine 0.8 mg/dL (0.6-1.0) Estimated GFR (Cockcroft-Gault) 73.2 Glucose Level 167 mg/dL (70-99) Calcium Level 7.9 mg/dL (8.5-10.1) Total Bilirubin 1.4 mg/dL (0.2-1.0) Direct Bilirubin 0.6 mg/dL (0.0-0.2) Aspartate Amino Transf (AST/SGOT) 30 U/L (15-37) Alanine Aminotransferase (ALT/SGPT) 40 U/L (14-59) Alkaline Phosphatase 65 U/L (46-116) Ammonia 23 mcmol/L (11-34) Total Protein 5.5 g/dL (6.4-8.2) Albumin 2.5 g/dL (3.4-5.0) Thyroid Stimulating Hormone (TSH) 4.704 uIU/mL (0.358-3.74) Medications Current Medications Sodium Chloride 1,000 ml @ 75 mls/hr [id number] IV Last administered on 07/11/21 08:34; Start 07/09/21 at 18:00 Potassium Chloride (Klor-Con) 40 meq 1X ONCE PO Last administered on 07/09/21at 17:54; Start 07/09/21 at 18:00; Stop 07/09/21 at 18:01; Status DC Temazepam (Restoril) 15 mg PRN QHS PRN PO INSOMNIA Last administered on 07/09/21 20:25; Start 07/09/21 at 17:45 Ondansetron HCl (Zofran) 4 mg PRN Q6HRS PRN IVP NAUSEA/VOMITING Last administered on 07/11/21 09:48; Start 07/09/21 at 17:45 Pantoprazole Sodium (PROTONIX VIAL for IV PUSH) 40 mg DAILYAC IVP Last administered on 07/11/21 08:29; Start 07/10/21 at 07:30; Stop 07/11/21 at 09:49; Status DC Amino Acids/ Electrolytes/ Dextrose 1,000 ml @ 80 mls/hr [id number] IV Last administered on 07/11/21at 08:15; Start 07/09/21 at 18:45 Potassium Chloride (Klor-Con) 40 meq 1X ONCE PO Last administered on 07/10/21 08:34; Start 07/10/21 at 08:00; Stop 07/10/21 at 08:01; Status DC Potassium Chloride (Klor-Con) 40 meq 1X ONCE PO Last administered on 07/11/21at 09:00; Start 07/11/21 at 09:00; Stop 07/11/21 at 09:01; Status DC Potassium Chloride/Water 100 ml @ 50 mls/hr 1X ONCE IV Last administered on 07/11/21 09:49; Start 07/11/21 at 09:00; Stop 07/11/21 at 10:59; Status DC Pantoprazole Sodium (Protonix) 40 mg DAILYAC PO ; Start 07/12/21 at 07:30 Potassium Chloride/Water 100 ml @ 50 mls/hr Q2H IV Last administered on 07/11/21at 12:17; Start 07/11/21 at 11:00; Stop 07/11/21 at 14:59 Hydralazine HCl (Apresoline Inj) 10 mg PRN Q4HRS PRN IVP ELEVATED BP, SEE COMMENTS Last administered on 07/11/21at 12:15; Start 07/11/21 at 11:45 Active Scripts Active Reported No Known Medications Prior To Admisstion (Info) Each 1 Each NA Vitals/I & O Vital Sign - Last 24 Hours 07/10/21 07/10/21 07/10/21 07/11/21 15:00 19:00 23:02 03:02 Temp 97.9 97.8 97.9 97.5 97.9 97.8 97.9 97.5 Pulse 87 89 89 87 Resp 20 18 18 18 B/P (MAP) 150/66 (94) 161/88 (112) 164/81 (108) 165/87 (113) Pulse Ox 99 97 98 96 O2 Delivery Room Air Room Air Room Air Room Air 07/11/21 07/11/21 07/11/21 07/11/21 07:00 08:00 11:00 12:15 Temp 97.6 97.3 97.6 97.3 Pulse 88 107 107 Resp 18 18 B/P (MAP) 168/90 (116) 209/99 (135) 209/99 Pulse Ox 98 99 O2 Delivery Room Air Room Air Intake and Output 07/10/21 07/10/21 07/11/21 15:00 23:00 07:00 Intake Total 0 ml Output Total 0 ml Balance 0 ml 0 ml Justicifation of Admission Dx: Justifications for Admission: Justification of Admission Dx: Yes KWASI KRISHNAMURTHY MD Jul 11, 2021 12:36
[2021-07-11 13:03] LABS: CLARITY,URINE TURBID; COLOR,URINE RED
[2021-07-11 13:04] LABS: BARBITURATES NEG (NEG); BENZODIAZEPINES NEG (NEG); CANNABINOIDS NEG (NEG); COCAINE NEG (NEG); METHADONE NEG (NEG); OPIATES NEG (NEG); PHENCYCLIDINE NEG (NEG)
[2021-07-11 13:05] LABS: AMPHETAMINE/METHAMPHETAMINE NEG (NEG)
[2021-07-11 13:15] LABS: BACTERIA,URINE MANY /HPF (0-FEW); RBC,URINE TNTC /HPF (0-2)
--- NOTE | 2021-07-11 13:49 | NUR ---
SS following up with discharge planning. SS reviewed pt chart and discussed with pt RN. Pt is currently on room air. GI and Neurology following. Pt on Clinimix. PT/OT ordered. Pt had low Potassium today and receiving IV Potassium. SS will continue to follow for discharge planning.
[2021-07-11] MEDS ORDERED: EMPA10TA PO (14:46)
[2021-07-11] MEDS ORDERED: LEVO25TA4 PO (14:46)
[2021-07-11] MEDS ORDERED: TRAZ-118 PO (14:46)
[2021-07-11] MEDS ORDERED: LEVO100T5 PO (14:46)
[2021-07-11] MEDS ORDERED: ONDA4TAB12 PO (14:46)
[2021-07-11] MEDS ORDERED: METF10007 PO (14:46)
[2021-07-11] MEDS ORDERED: MECL-75 PO (14:46)
--- NOTE | 2021-07-11 14:57 | NUR ---
Home Medication list faxed from PCP office (Dr. Gudino). Medications updated in computer. Dr. Coleman notified. Will continue to monitor.
[2021-07-11 15:00] VITALS: BP 152/82
[2021-07-11] MEDS ORDERED: DEXTROSE 50% 25 GM / 50ML DISP.SYRIN. IV PRN (15:00)
[2021-07-11] MEDS: INSULIN LISPRO 300 UNITS/3 ML VIAL. SQ SCH (16:33)
[2021-07-11 19:00] VITALS: BP 141/82
[2021-07-11] MEDS: traZODone 50 MG TABLET. PO SCH (21:00)
[2021-07-11 23:00] VITALS: BP 155/75
[2021-07-12 03:00] VITALS: BP 138/84
[2021-07-12] MEDS: LEVOTHYROXINE 100 MCG TABLET PO SCH ×2 (06:00→07:54)
[2021-07-12 07:00] VITALS: BP 158/83
[2021-07-12] MEDS: PANTOPRAZOLE 40 MG TABLET.DR. PO SCH ×2 (07:30→07:54)
[2021-07-12 07:31] LABS: BASO % 1 % (0-3); EOS # 0.2 x10^3/uL (0.0-0.7); EOS % 3 % (0-3); HEMATOCRIT 31.9 % (36.0-47.0); HEMOGLOBIN 10.7 g/dL (12.0-15.5); LYMPH # 1.4 x10^3/uL (1.0-4.8); LYMPH % 21 % (24-48); MEAN CORPUSCULAR HEMOGLOBIN 28 pg (25-35); MEAN CORPUSCULAR HGB CONC 34 g/dL (31-37); MEAN CORPUSCULAR VOLUME 84 fL (79-100); MONO # 0.2 x10^3/uL (0.0-1.1); MONO % 3 % (0-9); NEUT # 4.9 x10^3/uL (1.8-7.7); NEUT % 73 % (31-73); PLATELET COUNT 109 x10^3/uL (140-400); RED BLOOD COUNT 3.81 x10^6/uL (3.50-5.40); RED CELL DISTRIBUTION WIDTH 15.1 % (11.5-14.5); WHITE BLOOD COUNT 6.7 x10^3/uL (4.0-11.0)
[2021-07-12 07:43] LABS: CREATININE 0.9 mg/dL (0.6-1.0); GFR 63.9; POTASSIUM 3.9 mmol/L (3.5-5.1)
[2021-07-12] MEDS: INSULIN LISPRO 300 UNITS/3 ML VIAL. SQ SCH ×3 (08:00→17:00)
[2021-07-12] MEDS ORDERED: LEVOTHYROXINE SODIUM INJ 50 MCG in NORMAL SALINE 5 ML IVP ONE (08:15)
--- NOTE | 2021-07-12 08:56 | PDOC ---
PROGRESS NOTES Date of Service DATE: 07/12/21 TIME: 08:54 Assessment Suspect longstanding dementia, most likely early-onset Alzheimer's disease. This is per the story from the patient's son who has been caring for her for several years as well as the bilateral grasp reflexes. However nurse tells me there are family dynamic issues, 1 daughter says the son is not capable of taking care of the patient and thinks the patient has been perfectly normal all this time (but if she needs someone to care for her, how could she be normal?) Labs I ordered positive for slightly elevated TSH, now on her thyroid medication here in the hospital Metabolic issues including leukocytosis, anemia with GI bleeding and hemo peritoneum, hyperbilirubinemia, hyperglycemia, protein calorie malnutrition, thrombocytopenia, hypokalemia. Plan Treat medical diseases Holding on additional studies such as repeat CT head, MRI, lumbar puncture Subjective No complaints Objective Vital Signs Date Time Temp Pulse Resp B/P (MAP) Pulse Ox O2 Delivery O2 Flow Rate FiO2 07/12/21 03:00 97.4 102 18 138/84 (102) 97 Room Air 97.4 Intake and Output 07/12/21 07:00 Intake Total 3194 ml Output Total 100 ml Balance 3094 ml IV Total 3194 ml Output Urine Total 100 ml # Voids 8 # Bowel Movements 2 PHYSICAL EXAM Less alert. Oriented to person, does not know name of hospital or date, does not know the name of the president. PERRL. EOMI. CN: no focal findings. Muscle tone: normal. Muscle strength: 4/5 DTR: 2+ Plantar reflex: Flexor Gait: not examined in bed. Sensory exam: no abnormal findings. No cerebellar signs elicited. Review of Relevant I have reviewed the following items khai (where applicable) has been applied. Labs Laboratory Tests Test 07/10/21 11:39 07/11/21 07:05 07/11/21 12:34 07/11/21 12:50 Total Bilirubin 1.6 mg/dL (0.2-1.0) 1.4 mg/dL (0.2-1.0) Direct Bilirubin 0.6 mg/dL (0.0-0.2) 0.6 mg/dL (0.0-0.2) Aspartate Amino Transf (AST/SGOT) 34 U/L (15-37) 30 U/L (15-37) Alanine Aminotransferase (ALT/SGPT) 31 U/L (14-59) 40 U/L (14-59) Alkaline Phosphatase 70 U/L (46-116) 65 U/L (46-116) Ammonia 15 mcmol/L (11-34) 23 mcmol/L (11-34) Total Protein 6.1 g/dL (6.4-8.2) 5.5 g/dL (6.4-8.2) Albumin 2.8 g/dL (3.4-5.0) 2.5 g/dL (3.4-5.0) White Blood Count 7.7 x10^3/uL (4.0-11.0) Red Blood Count 3.66 x10^6/uL (3.50-5.40) Hemoglobin 10.3 g/dL (12.0-15.5) Hematocrit 30.4 % (36.0-47.0) Mean Corpuscular Volume 83 fL (79-100) Mean Corpuscular Hemoglobin 28 pg (25-35) Mean Corpuscular Hemoglobin Concent 34 g/dL (31-37) Red Cell Distribution Width 15.3 % (11.5-14.5) Platelet Count 123 x10^3/uL (140-400) Neutrophils (%) (Auto) 77 % (31-73) Lymphocytes (%) (Auto) 18 % (24-48) Monocytes (%) (Auto) 3 % (0-9) Eosinophils (%) (Auto) 2 % (0-3) Basophils (%) (Auto) 0 % (0-3) Neutrophils # (Auto) 5.9 x10^3/uL (1.8-7.7) Lymphocytes # (Auto) 1.4 x10^3/uL (1.0-4.8) Monocytes # (Auto) 0.3 x10^3/uL (0.0-1.1) Eosinophils # (Auto) 0.1 x10^3/uL (0.0-0.7) Basophils # (Auto) 0.0 x10^3/uL (0.0-0.2) Erythrocyte Sedimentation Rate 13 (0-25) Sodium Level 134 mmol/L (136-145) Potassium Level 2.7 mmol/L (3.5-5.1) Chloride Level 99 mmol/L (98-107) Carbon Dioxide Level 27 mmol/L (21-32) Anion Gap 8 (6-14) Blood Urea Nitrogen 26 mg/dL (7-20) Creatinine 0.8 mg/dL (0.6-1.0) Estimated GFR (Cockcroft-Gault) 73.2 Glucose Level 167 mg/dL (70-99) Calcium Level 7.9 mg/dL (8.5-10.1) Thyroid Stimulating Hormone (TSH) 4.704 uIU/mL (0.358-3.74) Urine Opiates Screen Neg (NEG) Urine Methadone Screen Neg (NEG) Urine Barbiturates Neg (NEG) Urine Phencyclidine Screen Neg (NEG) Urine Amphetamine/Methamphetamine Neg (NEG) Urine Benzodiazepines Screen Neg (NEG) Urine Cocaine Screen Neg (NEG) Urine Cannabinoids Screen Neg (NEG) Urine Ethyl Alcohol Neg (NEG) Urine Collection Type Unknown Urine Color Red Urine Clarity Turbid Urine pH 7.0 (<5.0-8.0) Urine Specific [place] 1.010 (1.000-1.030) Urine Protein mg/dL (NEG-TRACE) Urine Glucose (UA) mg/dL (NEG) Urine Ketones (Stick) mg/dL (NEG) Urine Blood (NEG) Urine Nitrite (NEG) Urine Bilirubin (NEG) Urine Urobilinogen Dipstick mg/dL (0.2 mg/dL) Urine Leukocyte Esterase (NEG) Urine RBC Tntc /HPF (0-2) Urine WBC 11-20 /HPF (0-4) Urine Bacteria Many /HPF (0-FEW) Test 07/11/21 16:25 07/11/21 20:43 07/12/21 06:45 07/12/21 08:32 Glucose (Fingerstick) 136 mg/dL (70-99) 180 mg/dL (70-99) 143 mg/dL (70-99) White Blood Count 6.7 x10^3/uL (4.0-11.0) Red Blood Count 3.81 x10^6/uL (3.50-5.40) Hemoglobin 10.7 g/dL (12.0-15.5) Hematocrit 31.9 % (36.0-47.0) Mean Corpuscular Volume 84 fL (79-100) Mean Corpuscular Hemoglobin 28 pg (25-35) Mean Corpuscular Hemoglobin Concent 34 g/dL (31-37) Red Cell Distribution Width 15.1 % (11.5-14.5) Platelet Count 109 x10^3/uL (140-400) Neutrophils (%) (Auto) 73 % (31-73) Lymphocytes (%) (Auto) 21 % (24-48) Monocytes (%) (Auto) 3 % (0-9) Eosinophils (%) (Auto) 3 % (0-3) Basophils (%) (Auto) 1 % (0-3) Neutrophils # (Auto) 4.9 x10^3/uL (1.8-7.7) Lymphocytes # (Auto) 1.4 x10^3/uL (1.0-4.8) Monocytes # (Auto) 0.2 x10^3/uL (0.0-1.1) Eosinophils # (Auto) 0.2 x10^3/uL (0.0-0.7) Basophils # (Auto) 0.0 x10^3/uL (0.0-0.2) Sodium Level 134 mmol/L (136-145) Potassium Level 3.9 mmol/L (3.5-5.1) Chloride Level 101 mmol/L (98-107) Carbon Dioxide Level 22 mmol/L (21-32) Anion Gap 11 (6-14) Blood Urea Nitrogen 31 mg/dL (7-20) Creatinine 0.9 mg/dL (0.6-1.0) Estimated GFR (Cockcroft-Gault) 63.9 Glucose Level 146 mg/dL (70-99) Calcium Level 9.0 mg/dL (8.5-10.1) Laboratory Tests Test 07/11/21 12:34 07/11/21 12:50 07/11/21 16:25 07/11/21 20:43 Urine Opiates Screen Neg (NEG) Urine Methadone Screen Neg (NEG) Urine Barbiturates Neg (NEG) Urine Phencyclidine Screen Neg (NEG) Urine Amphetamine/Methamphetamine Neg (NEG) Urine Benzodiazepines Screen Neg (NEG) Urine Cocaine Screen Neg (NEG) Urine Cannabinoids Screen Neg (NEG) Urine Ethyl Alcohol Neg (NEG) Urine Collection Type Unknown Urine Color Red Urine Clarity Turbid Urine pH 7.0 (<5.0-8.0) Urine Specific [place] 1.010 (1.000-1.030) Urine Protein mg/dL (NEG-TRACE) Urine Glucose (UA) mg/dL (NEG) Urine Ketones (Stick) mg/dL (NEG) Urine Blood (NEG) Urine Nitrite (NEG) Urine Bilirubin (NEG) Urine Urobilinogen Dipstick mg/dL (0.2 mg/dL) Urine Leukocyte Esterase (NEG) Urine RBC Tntc /HPF (0-2) Urine WBC 11-20 /HPF (0-4) Urine Bacteria Many /HPF (0-FEW) Glucose (Fingerstick) 136 mg/dL (70-99) 180 mg/dL (70-99) Test 07/12/21 06:45 07/12/21 08:32 White Blood Count 6.7 x10^3/uL (4.0-11.0) Red Blood Count 3.81 x10^6/uL (3.50-5.40) Hemoglobin 10.7 g/dL (12.0-15.5) Hematocrit 31.9 % (36.0-47.0) Mean Corpuscular Volume 84 fL (79-100) Mean Corpuscular Hemoglobin 28 pg (25-35) Mean Corpuscular Hemoglobin Concent 34 g/dL (31-37) Red Cell Distribution Width 15.1 % (11.5-14.5) Platelet Count 109 x10^3/uL (140-400) Neutrophils (%) (Auto) 73 % (31-73) Lymphocytes (%) (Auto) 21 % (24-48) Monocytes (%) (Auto) 3 % (0-9) Eosinophils (%) (Auto) 3 % (0-3) Basophils (%) (Auto) 1 % (0-3) Neutrophils # (Auto) 4.9 x10^3/uL (1.8-7.7) Lymphocytes # (Auto) 1.4 x10^3/uL (1.0-4.8) Monocytes # (Auto) 0.2 x10^3/uL (0.0-1.1) Eosinophils # (Auto) 0.2 x10^3/uL (0.0-0.7) Basophils # (Auto) 0.0 x10^3/uL (0.0-0.2) Sodium Level 134 mmol/L (136-145) Potassium Level 3.9 mmol/L (3.5-5.1) Chloride Level 101 mmol/L (98-107) Carbon Dioxide Level 22 mmol/L (21-32) Anion Gap 11 (6-14) Blood Urea Nitrogen 31 mg/dL (7-20) Creatinine 0.9 mg/dL (0.6-1.0) Estimated GFR (Cockcroft-Gault) 63.9 Glucose Level 146 mg/dL (70-99) Calcium Level 9.0 mg/dL (8.5-10.1) Glucose (Fingerstick) 143 mg/dL (70-99) Medications Current Medications Sodium Chloride 1,000 ml @ 75 mls/hr [id number] IV Last administered on 07/11/21 08:34; Start 07/09/21 at 18:00; Stop 07/11/21 at 15:39; Status DC Potassium Chloride (Klor-Con) 40 meq 1X ONCE PO Last administered on 06/15 17:54; Start 07/09/21 at 18:00; Stop 07/09/21 at 18:01; Status DC Temazepam (Restoril) 15 mg PRN QHS PRN PO INSOMNIA Last administered on 07/09/21 20:25; Start 07/09/21 at 17:45 Ondansetron HCl (Zofran) 4 mg PRN Q6HRS PRN IVP NAUSEA/VOMITING Last administered on 07/11/21 09:48; Start 07/09/21 at 17:45 Pantoprazole Sodium (PROTONIX VIAL for IV PUSH) 40 mg DAILYAC IVP Last administered on 07/11/21 08:29; Start 07/10/21 at 07:30; Stop 07/11/21 at 09:49; Status DC Amino Acids/ Electrolytes/ Dextrose 1,000 ml @ 80 mls/hr [id number] IV Last administered on 07/11/21 20:45; Start 07/09/21 at 18:45 Potassium Chloride (Klor-Con) 40 meq 1X ONCE PO Last administered on 07/10/21 08:34; Start 07/10/21 at 08:00; Stop 07/10/21 at 08:01; Status DC Potassium Chloride (Klor-Con) 40 meq 1X ONCE PO Last administered on 10/28/21at 09:00; Start 07/11/21 at 09:00; Stop 07/11/21 at 09:01; Status DC Potassium Chloride/Water 100 ml @ 50 mls/hr 1X ONCE IV Last administered on 07/11/21at 09:49; Start 07/11/21 at 09:00; Stop 07/11/21 at 10:59; Status DC Pantoprazole Sodium (Protonix) 40 mg DAILYAC PO ; Start 07/12/21 at 07:30; Stop 07/12/21 at 08:16; Status DC Potassium Chloride/Water 100 ml @ 50 mls/hr Q2H IV Last administered on 07/11/21at 13:00; Start 07/11/21 at 11:00; Stop 07/11/21 at 14:59; Status DC Hydralazine HCl (Apresoline Inj) 10 mg PRN Q4HRS PRN IVP ELEVATED BP, SEE COMMENTS Last administered on 07/11/21at 12:15; Start 07/11/21 at 11:45 Insulin Human Lispro (HumaLOG) 0-9 UNITS TIDWMEALS SQ ; Start 07/11/21 at 17:00 Dextrose (Dextrose 50%-Water Syringe) 12.5 gm PRN Q15MIN PRN IV SEE COMMENTS; Start 07/11/21 at 15:00 Levothyroxine Sodium (Synthroid) 100 mcg DAILY06 PO ; Start 07/12/21 at 06:00 Trazodone HCl (Desyrel) 50 mg QHS PO ; Start 07/11/21 at 21:00 Levothyroxine Sodium 50 mcg/ Sodium Chloride 5 ml @ 50 mls/hr 1X ONCE IVP ; Start 07/12/21 at 08:15; Stop 07/12/21 at 08:21; Status DC Pantoprazole Sodium (PROTONIX VIAL for IV PUSH) 40 mg DAILYAC IVP ; Start 07/12/21 at 08:30 Active Scripts Active Reported Trazodone Hcl 50 Mg Tablet 1 Tab PO QHS Ondansetron Odt (Ondansetron) 4 Mg Tab.rapdis 8 Mg PO PRN Q8HRS PRN Metformin Hcl 1,000 Mg Tablet 1,000 Mg PO BIDWMEALS Meclizine Hcl 25 Mg Tablet 1 Tab PO PRN TID Levothyroxine Sodium 25 Mcg Tablet 1 Tab PO DAILY Levothyroxine Sodium 100 Mcg Tablet 1 Tab PO DAILY Jardiance (Empagliflozin) 10 Mg Tablet 10 Mg PO DAILY No Known Medications Prior To Admisstion (Info) Each 1 Each NA Vitals/I & O Vital Sign - Last 24 Hours 07/11/21 07/11/21 07/11/21 07/11/21 11:00 12:15 15:00 19:00 Temp 97.3 97.2 97.8 97.3 97.2 97.8 Pulse 107 107 94 96 Resp 18 18 20 B/P (MAP) 209/99 (135) 209/99 152/82 (105) 141/82 (101) Pulse Ox 99 97 98 O2 Delivery Room Air 07/11/21 07/12/21 23:00 03:00 Temp 97.5 97.4 97.5 97.4 Pulse 97 102 Resp 16 18 B/P (MAP) 155/75 (101) 138/84 (102) Pulse Ox 98 97 O2 Delivery Room Air Room Air Intake and Output 07/11/21 07/11/21 07/12/21 15:00 23:00 07:00 Intake Total 2000 ml 1194 ml Output Total 100 ml Balance 1900 ml 1194 ml Justicifation of Admission Dx: Justifications for Admission: Justification of Admission Dx: Yes KWASI KRISHNAMURTHY MD Jul 12, 2021 08:56
--- NOTE | 2021-07-12 09:09 | PDOC ---
[employer] PROGRESS NOTE Date of Service DOS: DATE: 07/12/21 TIME: 09:06 Chief Complaint Chief Complaint chronic encephalopathy, Likely early onset Dementia, Alzheimers disease N/V/D on admit - improved blood loss Anemia - +Hemoccult, lower GI bleed, improved Thrombocytopenia - suspect from liver disease Abnormal CT - interval post cholecystectomy changes Recent cholecystectomy COVID negative HTN, hypokalemia - check mag, replace Severe malnutriton POA, ALbumin 2.8 down to 2.5 History of Present Illness History of Present Illness Ms Murphy is a 60-year-old female who had a laparoscopic cholecystectomy at [facility] 10 days ago, presented to the ER at [facility] with some rectal bleeding. She also has some nausea, vomiting, and diarrhea. She has been confused and un able to care for herself at home. They checked her hemoglobin, it is down to 11.6 from 15.4 just a few days ago. She also has hypokalemia and thrombocytopenia. 07/10: Confused this morning. No pain complaints. Not oriented K 2.9 Still confused today. No pain complaints. K 2.7 despite replacement. Vitals/I&O Vitals/I&O: Vital Signs Date Time Temp Pulse Resp B/P (MAP) Pulse Ox O2 Delivery O2 Flow Rate FiO2 07/12/21 03:00 97.4 102 18 138/84 (102) 97 Room Air 97.4 I & O 07/11/21 07/11/21 07/12/21 15:00 23:00 07:00 Intake Total 2000 ml 1194 ml Output Total 100 ml Balance 1900 ml 1194 ml Physical Exam General: Alert, Oriented X3, Cooperative, No acute distress Heart: Regular rate Lungs: Clear Abdomen: Normal bowel sounds Extremities: No clubbing, No cyanosis Skin: No rashes, No breakdown Labs Labs: Laboratory Tests Test 07/11/21 12:34 07/11/21 12:50 07/11/21 16:25 07/11/21 20:43 Urine Opiates Screen Neg (NEG) Urine Methadone Screen Neg (NEG) Urine Barbiturates Neg (NEG) Urine Phencyclidine Screen Neg (NEG) Urine Amphetamine/Methamphetamine Neg (NEG) Urine Benzodiazepines Screen Neg (NEG) Urine Cocaine Screen Neg (NEG) Urine Cannabinoids Screen Neg (NEG) Urine Ethyl Alcohol Neg (NEG) Urine Collection Type Unknown Urine Color Red Urine Clarity Turbid Urine pH 7.0 (<5.0-8.0) Urine Specific [place] 1.010 (1.000-1.030) Urine Protein mg/dL (NEG-TRACE) Urine Glucose (UA) mg/dL (NEG) Urine Ketones (Stick) mg/dL (NEG) Urine Blood (NEG) Urine Nitrite (NEG) Urine Bilirubin (NEG) Urine Urobilinogen Dipstick mg/dL (0.2 mg/dL) Urine Leukocyte Esterase (NEG) Urine RBC Tntc /HPF (0-2) Urine WBC 11-20 /HPF (0-4) Urine Bacteria Many /HPF (0-FEW) Glucose (Fingerstick) 136 mg/dL (70-99) 180 mg/dL (70-99) Test 07/12/21 06:45 07/12/21 08:32 White Blood Count 6.7 x10^3/uL (4.0-11.0) Red Blood Count 3.81 x10^6/uL (3.50-5.40) Hemoglobin 10.7 g/dL (12.0-15.5) Hematocrit 31.9 % (36.0-47.0) Mean Corpuscular Volume 84 fL (79-100) Mean Corpuscular Hemoglobin 28 pg (25-35) Mean Corpuscular Hemoglobin Concent 34 g/dL (31-37) Red Cell Distribution Width 15.1 % (11.5-14.5) Platelet Count 109 x10^3/uL (140-400) Neutrophils (%) (Auto) 73 % (31-73) Lymphocytes (%) (Auto) 21 % (24-48) Monocytes (%) (Auto) 3 % (0-9) Eosinophils (%) (Auto) 3 % (0-3) Basophils (%) (Auto) 1 % (0-3) Neutrophils # (Auto) 4.9 x10^3/uL (1.8-7.7) Lymphocytes # (Auto) 1.4 x10^3/uL (1.0-4.8) Monocytes # (Auto) 0.2 x10^3/uL (0.0-1.1) Eosinophils # (Auto) 0.2 x10^3/uL (0.0-0.7) Basophils # (Auto) 0.0 x10^3/uL (0.0-0.2) Sodium Level 134 mmol/L (136-145) Potassium Level 3.9 mmol/L (3.5-5.1) Chloride Level 101 mmol/L (98-107) Carbon Dioxide Level 22 mmol/L (21-32) Anion Gap 11 (6-14) Blood Urea Nitrogen 31 mg/dL (7-20) Creatinine 0.9 mg/dL (0.6-1.0) Estimated GFR (Cockcroft-Gault) 63.9 Glucose Level 146 mg/dL (70-99) Calcium Level 9.0 mg/dL (8.5-10.1) Glucose (Fingerstick) 143 mg/dL (70-99) Comment Review of Relevant I have reviewed the following items khai (where applicable) has been applied. Medications: Current Medications Medications (Trade) Dose Ordered Sig/Josué Route PRN Reason Start Time Stop Time Status Last Admin Dose Admin Potassium Chloride/Water 100 ml @ 50 mls/hr Q2H IV 07/11/21 11:00 07/11/21 14:59 DC 07/11/21 13:00 Hydralazine HCl (Apresoline Inj) 10 mg PRN Q4HRS PRN IVP ELEVATED BP, SEE COMMENTS 07/11/21 11:45 07/11/21 12:15 Justifications for Admission Other Justification BENEDICTO MARISACL MD Jul 12, 2021 09:09
[2021-07-12] MEDS: PANTOPRAZOLE IV PUSH 40 MG VIAL. IVP SCH (09:42)
[2021-07-12] MEDS: AA 4.25 %/CALCIUM/LYTES/D5W 1,000 ML IV SCH ×2 (09:42→20:57)
--- NOTE | 2021-07-12 10:02 | PDOC ---
Date of Service: DATE: 07/12/21 TIME: 09:54 Subjective: Subjective: I asked if she was in pain - shakes head no. Breakfast tray (clears) untouched. Objective: Objective: D/w nurse - no stools yesterday but diarrhea overnight/this morning - specimen sent. Nurse offers liquid diet - pt does not take. Vital Signs: Vital Signs Date Time Temp Pulse Resp B/P (MAP) Pulse Ox O2 Delivery O2 Flow Rate FiO2 07/12/21 03:00 97.4 102 18 138/84 (102) 97 Room Air 97.4 Labs: Laboratory Tests Test 07/11/21 12:34 07/11/21 12:50 07/11/21 16:25 07/11/21 20:43 Urine Opiates Screen Neg Urine Methadone Screen Neg Urine Barbiturates Neg Urine Phencyclidine Screen Neg Urine Amphetamine/Methamphetamine Neg Urine Benzodiazepines Screen Neg Urine Cocaine Screen Neg Urine Cannabinoids Screen Neg Urine Ethyl Alcohol Neg Urine Collection Type Unknown Urine Color Red Urine Clarity Turbid Urine pH 7.0 Urine Specific [place] 1.010 Urine Protein mg/dL Urine Glucose (UA) mg/dL Urine Ketones (Stick) mg/dL Urine Blood Urine Nitrite Urine Bilirubin Urine Urobilinogen Dipstick mg/dL Urine Leukocyte Esterase Urine RBC Tntc /HPF Urine WBC 11-20 /HPF Urine Bacteria Many /HPF Glucose (Fingerstick) 136 mg/dL 180 mg/dL Test 07/12/21 06:45 07/12/21 08:32 White Blood Count 6.7 x10^3/uL Red Blood Count 3.81 x10^6/uL Hemoglobin 10.7 g/dL Hematocrit 31.9 % Mean Corpuscular Volume 84 fL Mean Corpuscular Hemoglobin 28 pg Mean Corpuscular Hemoglobin Concent 34 g/dL Red Cell Distribution Width 15.1 % Platelet Count 109 x10^3/uL Neutrophils (%) (Auto) 73 % Lymphocytes (%) (Auto) 21 % Monocytes (%) (Auto) 3 % Eosinophils (%) (Auto) 3 % Basophils (%) (Auto) 1 % Neutrophils # (Auto) 4.9 x10^3/uL Lymphocytes # (Auto) 1.4 x10^3/uL Monocytes # (Auto) 0.2 x10^3/uL Eosinophils # (Auto) 0.2 x10^3/uL Basophils # (Auto) 0.0 x10^3/uL Sodium Level 134 mmol/L Potassium Level 3.9 mmol/L Chloride Level 101 mmol/L Carbon Dioxide Level 22 mmol/L Anion Gap 11 Blood Urea Nitrogen 31 mg/dL Creatinine 0.9 mg/dL Estimated GFR (Cockcroft-Gault) 63.9 Glucose Level 146 mg/dL Calcium Level 9.0 mg/dL Glucose (Fingerstick) 143 mg/dL URINE CULTURE Preliminary Preliminary >100,000 CFU/ML FINAL ID= [ESCHERICHIA COLI] PE: GEN: NAD LUNGS: clear anteriorly HEART: RRR ABD: soft, non-distended NEURO/PSYCH: lethargic, does not verbalize A/P: Suspected dementia Diarrhea Mild anemia, +Hemoccult - not iron or B12 deficient Elevated TSH, UTI - per primary Abnormal CT - borderline right colonic wall thickening w/ adjacent fat stranding, trace pelvic hemoperitoenum Recent cholecystectomy, small fluid collection adjacent to GB fossa on CT - no abdominal pain COVID negative -- Await stool tests. Continue PPI. Diet as able. Justicifation of Admission Dx: Justifications for Admission: Justification of Admission Dx: Yes MAIKOL FELICIANO Jul 12, 2021 10:02
[2021-07-12 11:00] VITALS: BP 143/90
--- NOTE | 2021-07-12 11:18 | NUR ---
Verified with patient son, Giovanni Argueta, that son had procedure done [facility]. Orders received to get Medical Records requested from Dr. Rea. Telephone consent given by Giovanni. Fax sent. Will continue to monitor.
[2021-07-12] MEDS: cefTRIAXone IV Push 1 GM VIAL. IVP SCH (14:59)
[2021-07-12 15:00] VITALS: BP 126/80
[2021-07-12] MEDS: VANCOMYCIN 125 MG/2.5 ML ORAL SOLUTION. PO SCH ×2 (16:26→20:57)
[2021-07-12 19:00] VITALS: BP 146/67
[2021-07-12] MEDS: traZODone 50 MG TABLET. PO SCH ×2 (20:57→21:00)
--- NOTE | 2021-07-12 21:30 | NUR ---
Pt very lethargic with assessment. When came time for meds pt very groggy and refused to take Vancomycin PO. RN did finally get pt to take but had to encourage pt to swallow medicine several times. Unable to get pt to take trazadone or even take a sip of water.
[2021-07-12 23:00] VITALS: BP 133/57
[2021-07-13 03:13] VITALS: BP 146/73
[2021-07-13] MEDS: LEVOTHYROXINE 100 MCG TABLET PO SCH (06:00)
[2021-07-13 06:25] VITALS: BP 143/76
[2021-07-13] MEDS: INSULIN LISPRO 300 UNITS/3 ML VIAL. SQ SCH ×3 (08:00→17:00)
--- NOTE | 2021-07-13 09:44 | PDOC ---
[employer] PROGRESS NOTE Date of Service DOS: DATE: 07/13/21 TIME: 09:42 Chief Complaint Chief Complaint acute metabolic encephalopathy, UTI, c. diff. colilits, diarrhea, chronic encephalopathy, Likely early onset Dementia, Alzheimers disease N/V/D on admit - improved blood loss Anemia - +Hemoccult, lower GI bleed, improved Thrombocytopenia - suspect from liver disease Abnormal CT - interval post cholecystectomy changes Recent cholecystectomy COVID negative HTN, hypokalemia - check mag, replace Severe malnutriton POA, ALbumin 2.8 down to 2.5 History of Present Illness History of Present Illness 07/13, PO vanc and IV flagyl started last night, IV rocephin for UTI still out, poor PO, will need to be fed PO, may need NG for meds for c. diff Ms Murphy is a 60-year-old female who had a recent laparoscopic cholecystectomy at [facility] 10 days ago, presented to the ER at [facility] with some rectal bleeding. She also has some nausea, vomiting, and diarrhea. She has been confused and unable to care for herself at home. hemoglobin, was down to 11.6 from 15.4 just a few days ago. She also has hypokalemia and thrombocytopenia. Vitals/I&O Vitals/I&O: Vital Signs Date Time Temp Pulse Resp B/P (MAP) Pulse Ox O2 Delivery O2 Flow Rate FiO2 07/13/21 06:25 97.8 101 18 143/76 (98) 99 Room Air 97.8 I & O 07/12/21 07/12/21 07/13/21 15:00 23:00 07:00 Intake Total 1012 ml 50 ml Balance 1012 ml 50 ml Physical Exam General: Alert, Oriented X3, Cooperative, No acute distress Heart: Regular rate Lungs: Clear Abdomen: Normal bowel sounds Extremities: No clubbing, No cyanosis Skin: No rashes, No breakdown Labs Labs: Laboratory Tests Test 07/12/21 11:05 07/12/21 16:56 07/12/21 20:28 07/13/21 07:58 Glucose (Fingerstick) 149 mg/dL (70-99) 133 mg/dL (70-99) 121 mg/dL (70-99) 115 mg/dL (70-99) Comment Review of Relevant I have reviewed the following items khai (where applicable) has been applied. Medications: Current Medications Medications (Trade) Dose Ordered Sig/Josué Route PRN Reason Start Time Stop Time Status Last Admin Dose Admin Ceftriaxone Sodium (Rocephin) 1 gm Q24H IVP 07/12/21 15:00 07/12/21 14:59 Vancomycin HCl (Vancomycin Oral Solution) 125 mg [id number] PO 07/12/21 17:00 07/12/21 20:57 Metronidazole 100 ml @ 100 mls/hr Q8HRS IV 07/12/21 22:00 07/13/21 05:59 Metronidazole 100 ml @ 100 mls/hr 1X ONCE IV 07/12/21 16:00 07/12/21 16:59 DC 07/12/21 16:27 Justifications for Admission Other Justification BENEDICTO MARISCAL MD Jul 13, 2021 09:44
[2021-07-13] MEDS: PANTOPRAZOLE IV PUSH 40 MG VIAL. IVP SCH (10:04)
[2021-07-13] MEDS: VANCOMYCIN 125 MG/2.5 ML ORAL SOLUTION. PO SCH ×4 (10:05→22:11)
[2021-07-13] MEDS: AA 4.25 %/CALCIUM/LYTES/D5W 1,000 ML IV SCH ×2 (10:26→23:16)
[2021-07-13 11:00] VITALS: BP 139/74
--- NOTE | 2021-07-13 11:14 | PDOC ---
Infectious Disease Note Vital Signs: Vital Signs Vital Signs Date Time Temp Pulse Resp B/P (MAP) Pulse Ox O2 Delivery O2 Flow Rate FiO2 07/13/21 06:25 97.8 101 18 143/76 (98) 99 Room Air 97.8 Medications: Inpatient Meds: Medications reviewed. Labs: Lab Laboratory Tests Test 07/12/21 16:56 07/12/21 20:28 07/13/21 07:58 Glucose (Fingerstick) 133 mg/dL (70-99) 121 mg/dL (70-99) 115 mg/dL (70-99) Objective: Assessment: Patient seen and examined ID consult dictated [id number] Plan: Plan of Care Thank you SUNIL BARROS MD Jul 13, 2021 11:14
--- NOTE | 2021-07-13 11:48 | CONS ---
DATE OF CONSULTATION: 07/13/2021 REFERRING PHYSICIAN: Dr. Rea. REASON FOR CONSULTATION: C. diff and UTI. HISTORY OF PRESENT ILLNESS: A 60-year-old female who was unable to give history, currently sleeping, arousable, nods no to pain, but does not answer most of her questions. The patient underwent laparoscopic cholecystectomy at [facility] 10 days ago prior to admission when she was presented to the ER with rectal bleeding. She also had some nausea, vomiting, diarrhea. Hemoglobin is down to 11.6 from 15.4. The patient had hypokalemia. GI has been consulted. Stool cultures were negative. C. diff returned positive. The patient is currently on Rocephin, Flagyl and p.o. vancomycin. ID consultation has been requested for antibiotic management. UA showed hematuria. WBC was not done. Urine culture is positive for E. coli 100,000 colonies, pansensitive except for cefuroxime. Discussed with nursing staff. No fevers. Patient has been sleeping more than usual. Neurology was consulted. Their impression was that the patient has longstanding dementia, most likely early onset Alzheimer disease. CT report noted. PAST MEDICAL HISTORY: GI bleed, hemoperitoneum, hyperbilirubinemia, hyperglycemia, protein calorie malnutrition, thrombocytopenia, hypokalemia, leukocytosis, anemia, slightly elevated TSH, hypertension, hyperlipidemia, diabetes, hypothyroidism, psoriasis. PAST SURGICAL HISTORY: Status post cholecystectomy, recent history of hysterectomy. FAMILY HISTORY: Unable to obtain. SOCIAL HISTORY: Per notes quit smoking. CURRENT MEDICATIONS: Rocephin, p.o. vancomycin and Flagyl. Other medications reviewed in medication list. ALLERGIES: No known drug allergies. REVIEW OF SYSTEMS: Difficult to obtain. PHYSICAL EXAMINATION: VITAL SIGNS: Temperature 97.8, pulse 101, respiratory rate 18, blood pressure 143/76, and oxygen saturation 99% on room air. GENERAL: Sleepy, arousable, does not answer most of the questions, cooperative, appears comfortable on O2 by nasal cannula. HEENT: Normocephalic, atraumatic. Anicteric. Oral mucosa dry. NECK: Supple. No tenderness. LUNGS: Clear. HEART: S1, S2. ABDOMEN: Soft, nondistended, nontender. No rebound or guarding. No grimacing on deep palpation. NEUROLOGIC: Lethargic, does not verbalize. EXTREMITIES: No edema, no cyanosis. GENITOURINARY: No Bourgeois in place. PIV looks clean. LABORATORY DATA: WBC 6.7, hemoglobin 10.7, hematocrit 31.9, platelets 109. Last BNP from 07/12 reviewed. Creatinine 0.9. Ammonia 23. Potassium corrected. IMAGING: None. IMPRESSION: 1. Clostridium difficile colitis. 2. Urinary tract infection. UA not available with hematuria. 3. Status post recent laparoscopic cholecystectomy at [facility] 10 days prior to admission with rectal bleeding. 4. Nausea, vomiting, improving per nurse. 5. Anemia. 6. Hypokalemia. 7. Thrombocytopenia. 8. Encephalopathy, chronic, likely early onset dementia, Alzheimer's disease. Waiting per discussion with nursing staff. Patient was able to communicate last week and was able to sit Upright in bed 9. Abnormal CT interval post-cholecystectomy changes. 10. COVID negative. 11. Hypertension. 12. Severe calorie malnutrition. 13. Inability to self-care. RECOMMENDATIONS: 1. Continue p.o. vancomycin and Rocephin. Discontinue Flagyl. 2. Maintain aspiration precaution. 3. Monitor labs and cultures. 4. Prognosis is poor. PT and OT as tolerated. 5. Monitor labs and cultures. 6. GI and Urology team following. 7. Discussed with RN at bedside. Thank you for consulting Infectious Disease to participate in this patient's care. If you have any questions, do not hesitate to contact me. IVETT/LUIZA JOHN: Manish TID: [id number] [facility] SYSTEMCarlin
[2021-07-13 15:00] VITALS: BP 160/81
[2021-07-13] MEDS: cefTRIAXone IV Push 1 GM VIAL. IVP SCH (15:08)
[2021-07-13 16:25] LABS: BASO # 0.1 x10^3/uL (0.0-0.2); BASO % 2 % (0-3); EOS # 0.1 x10^3/uL (0.0-0.7); EOS % 2 % (0-3); HEMOGLOBIN 10.2 g/dL (12.0-15.5); LYMPH # 1.2 x10^3/uL (1.0-4.8); LYMPH % 28 % (24-48); MEAN CORPUSCULAR HEMOGLOBIN 28 pg (25-35); MEAN CORPUSCULAR HGB CONC 32 g/dL (31-37); MONO # 0.2 x10^3/uL (0.0-1.1); MONO % 5 % (0-9); NEUT # 2.7 x10^3/uL (1.8-7.7); NEUT % 64 % (31-73); PLATELET COUNT 65 x10^3/uL (140-400); WHITE BLOOD COUNT 4.2 x10^3/uL (4.0-11.0)
[2021-07-13 16:26] LABS: CALCIUM 8.2 mg/dL (8.5-10.1); CREATININE 0.9 mg/dL (0.6-1.0); GFR 63.9; POTASSIUM 4.7 mmol/L (3.5-5.1)
[2021-07-13 16:48] LABS: MEAN CORPUSCULAR VOLUME 88 fL (79-100)
[2021-07-13 19:00] VITALS: BP 166/85
[2021-07-13] MEDS: traZODone 50 MG TABLET. PO SCH ×2 (22:12→22:14)
[2021-07-13 23:06] VITALS: BP 166/79
--- NOTE | 2021-07-14 00:13 | NUR ---
Patient agreed to take oral vancomycin, refused Trazadone or a sip of water at this time.
[2021-07-14 03:35] VITALS: BP 162/101
[2021-07-14 05:34] LABS: CALCIUM 8.9 mg/dL (8.5-10.1); GFR 56.6; POTASSIUM 4.6 mmol/L (3.5-5.1)
[2021-07-14 05:42] LABS: BASO % 1 % (0-3); EOS # 0.1 x10^3/uL (0.0-0.7); EOS % 1 % (0-3); HEMATOCRIT 30.6 % (36.0-47.0); HEMOGLOBIN 10.2 g/dL (12.0-15.5); LYMPH % 18 % (24-48); MEAN CORPUSCULAR HEMOGLOBIN 28 pg (25-35); MEAN CORPUSCULAR HGB CONC 33 g/dL (31-37); MEAN CORPUSCULAR VOLUME 86 fL (79-100); MONO # 0.1 x10^3/uL (0.0-1.1); MONO % 2 % (0-9); NEUT # 4.4 x10^3/uL (1.8-7.7); NEUT % 78 % (31-73); PLATELET COUNT 60 x10^3/uL (140-400); RED BLOOD COUNT 3.58 x10^6/uL (3.50-5.40); RED CELL DISTRIBUTION WIDTH 15.7 % (11.5-14.5); WHITE BLOOD COUNT 5.6 x10^3/uL (4.0-11.0)
[2021-07-14 07:00] VITALS: BP 159/91
[2021-07-14] MEDS: INSULIN LISPRO 300 UNITS/3 ML VIAL. SQ SCH ×3 (08:00→17:00)
[2021-07-14] MEDS: PANTOPRAZOLE IV PUSH 40 MG VIAL. IVP SCH (09:22)
[2021-07-14] MEDS: VANCOMYCIN 125 MG/2.5 ML ORAL SOLUTION. PO SCH ×4 (09:22→20:23)
[2021-07-14] MEDS: LEVOTHYROXINE 100 MCG TABLET PO SCH (09:22)
--- NOTE | 2021-07-14 09:40 | PDOC ---
Infectious Disease Note Subjective: Subjective Patient arouses to verbal stimuli but does not answer any questions Afebrile Vital Signs: Vital Signs Vital Signs Date Time Temp Pulse Resp B/P (MAP) Pulse Ox O2 Delivery O2 Flow Rate FiO2 07/14/21 07:00 98.0 104 20 159/91 (113) 99 Room Air 98.0 Physical Exam: PHYSICAL EXAM GENERAL: Sleepy, arousable, does not answer most of the questions, cooperative, appears comfortable on O2 by nasal cannula. HEENT: Normocephalic, atraumatic. Anicteric. Oral mucosa dry. NECK: Supple. No tenderness. LUNGS: Clear. HEART: S1, S2. ABDOMEN: Soft, nondistended, nontender. No rebound or guarding. No grimacing on deep palpation. NEUROLOGIC: Lethargic, does not verbalize. EXTREMITIES: No edema, no cyanosis. GENITOURINARY: No Bourgeois in place. PIV looks clean. Medications: Inpatient Meds: Medications reviewed. Labs: Lab Laboratory Tests Test 07/13/21 11:46 07/13/21 15:30 07/13/21 16:46 07/14/21 04:30 Glucose (Fingerstick) 112 mg/dL (70-99) 115 mg/dL (70-99) White Blood Count 4.2 x10^3/uL (4.0-11.0) 5.6 x10^3/uL (4.0-11.0) Red Blood Count 3.60 x10^6/uL (3.50-5.40) 3.58 x10^6/uL (3.50-5.40) Hemoglobin 10.2 g/dL (12.0-15.5) 10.2 g/dL (12.0-15.5) Hematocrit 32.0 % (36.0-47.0) 30.6 % (36.0-47.0) Mean Corpuscular Volume 88 fL (79-100) 86 fL (79-100) Mean Corpuscular Hemoglobin 28 pg (25-35) 28 pg (25-35) Mean Corpuscular Hemoglobin Concent 32 g/dL (31-37) 33 g/dL (31-37) Red Cell Distribution Width 16.0 % (11.5-14.5) 15.7 % (11.5-14.5) Platelet Count 65 x10^3/uL (140-400) 60 x10^3/uL (140-400) Neutrophils (%) (Auto) 64 % (31-73) 78 % (31-73) Lymphocytes (%) (Auto) 28 % (24-48) 18 % (24-48) Monocytes (%) (Auto) 5 % (0-9) 2 % (0-9) Eosinophils (%) (Auto) 2 % (0-3) 1 % (0-3) Basophils (%) (Auto) 2 % (0-3) 1 % (0-3) Neutrophils # (Auto) 2.7 x10^3/uL (1.8-7.7) 4.4 x10^3/uL (1.8-7.7) Lymphocytes # (Auto) 1.2 x10^3/uL (1.0-4.8) 1.0 x10^3/uL (1.0-4.8) Monocytes # (Auto) 0.2 x10^3/uL (0.0-1.1) 0.1 x10^3/uL (0.0-1.1) Eosinophils # (Auto) 0.1 x10^3/uL (0.0-0.7) 0.1 x10^3/uL (0.0-0.7) Basophils # (Auto) 0.1 x10^3/uL (0.0-0.2) 0.0 x10^3/uL (0.0-0.2) Sodium Level 132 mmol/L (136-145) 130 mmol/L (136-145) Potassium Level 4.7 mmol/L (3.5-5.1) 4.6 mmol/L (3.5-5.1) Chloride Level 101 mmol/L (98-107) 99 mmol/L (98-107) Carbon Dioxide Level 19 mmol/L (21-32) 17 mmol/L (21-32) Anion Gap 12 (6-14) 14 (6-14) Blood Urea Nitrogen 38 mg/dL (7-20) 40 mg/dL (7-20) Creatinine 0.9 mg/dL (0.6-1.0) 1.0 mg/dL (0.6-1.0) Estimated GFR (Cockcroft-Gault) 63.9 56.6 Glucose Level 119 mg/dL (70-99) 121 mg/dL (70-99) Calcium Level 8.2 mg/dL (8.5-10.1) 8.9 mg/dL (8.5-10.1) Test 07/14/21 08:00 Glucose (Fingerstick) 143 mg/dL (70-99) Objective: Assessment: 1. Clostridium difficile colitis. 2. Urinary tract infection. UA not available with hematuria. 3. Status post recent laparoscopic cholecystectomy at [facility] 10 days prior to admission with rectal bleeding. 4. Nausea, vomiting, improving per nurse. 5. Anemia. 6. Hypokalemia. 7. Thrombocytopenia. 8. Encephalopathy, chronic, likely early onset dementia, Alzheimer's disease. Fluctuating. 9. Abnormal CT interval post-cholecystectomy changes. 10. COVID negative. 11. Hypertension. 12. Severe calorie malnutrition. 13. Inability to self-care. Plan: Plan of Care 1. Continue p.o. vancomycin and Rocephin. Off Flagyl 2. Maintain aspiration precaution. 3. Monitor labs and cultures. 4. Prognosis is poor. PT and OT as tolerated. 5. Monitor labs and cultures. 6. GI and neurology team following. SUNIL BARROS MD Jul 14, 2021 09:40
[2021-07-14 11:00] VITALS: BP 153/81
[2021-07-14] MEDS: AA 4.25 %/CALCIUM/LYTES/D5W 1,000 ML IV SCH (12:19)
--- NOTE | 2021-07-14 13:03 | PDOC ---
[employer] PROGRESS NOTE Date of Service DOS: DATE: 07/14/21 TIME: 13:02 Chief Complaint Chief Complaint acute metabolic encephalopathy, UTI, c. diff. colilits, diarrhea, chronic encephalopathy, Likely early onset Dementia, Alzheimers disease N/V/D on admit - improved blood loss Anemia - +Hemoccult, lower GI bleed, improved Thrombocytopenia - suspect from liver disease Abnormal CT - interval post cholecystectomy changes Recent cholecystectomy COVID negative HTN, hypokalemia - check mag, replace Severe malnutriton POA, ALbumin 2.8 down to 2.5 History of Present Illness History of Present Illness 07/14, stil lethargic, reviewed with RN, they are getting the PO vanc in her, she is swallowing, not much else for PO intake, on PPN cont hte PO vanc - has gotten IV flagyl , on IV rocephin for UTI still out, poor PO, will need to be fed PO, could consider NG for meds if not imrpoving Ms Murphy is a 60-year-old female who had a recent laparoscopic cholecystectomy at [facility] 10 days ago, presented to the ER at [facility] with some rectal bleeding. She also has some nausea, vomiting, and diarrhea. She has been confused and unable to care for herself at home. hemoglobin, was down to 11.6 from 15.4 just a few days ago. She also has hypokalemia and thrombocytopenia. Vitals/I&O Vitals/I&O: Vital Signs Date Time Temp Pulse Resp B/P (MAP) Pulse Ox O2 Delivery O2 Flow Rate FiO2 07/14/21 11:00 98.1 106 20 153/81 (105) 100 Room Air 98.1 I & O 07/13/21 07/13/21 07/14/21 15:00 23:00 07:00 Intake Total 0 ml 0 ml Balance 0 ml 0 ml Physical Exam Physical Exam: GENERAL: Sleepy, arousable, does not answer most of the questions, cooperative, appears comfortable on O2 by nasal cannula. HEENT: Normocephalic, atraumatic. Anicteric. Oral mucosa dry. NECK: Supple. No tenderness. LUNGS: Clear. HEART: S1, S2. ABDOMEN: Soft, nondistended, nontender. No rebound or guarding. No grimacing on deep palpation. NEUROLOGIC: Lethargic, does not verbalize. EXTREMITIES: No edema, no cyanosis. GENITOURINARY: No Bourgeois in place. PIV looks clean. General: Alert, Oriented X3, Cooperative, No acute distress Heart: Regular rate Lungs: Clear Abdomen: Normal bowel sounds Extremities: No clubbing, No cyanosis Skin: No rashes, No breakdown Labs Labs: Laboratory Tests Test 07/13/21 15:30 07/13/21 16:46 07/14/21 04:30 07/14/21 08:00 White Blood Count 4.2 x10^3/uL (4.0-11.0) 5.6 x10^3/uL (4.0-11.0) Red Blood Count 3.60 x10^6/uL (3.50-5.40) 3.58 x10^6/uL (3.50-5.40) Hemoglobin 10.2 g/dL (12.0-15.5) 10.2 g/dL (12.0-15.5) Hematocrit 32.0 % (36.0-47.0) 30.6 % (36.0-47.0) Mean Corpuscular Volume 88 fL (79-100) 86 fL (79-100) Mean Corpuscular Hemoglobin 28 pg (25-35) 28 pg (25-35) Mean Corpuscular Hemoglobin Concent 32 g/dL (31-37) 33 g/dL (31-37) Red Cell Distribution Width 16.0 % (11.5-14.5) 15.7 % (11.5-14.5) Platelet Count 65 x10^3/uL (140-400) 60 x10^3/uL (140-400) Neutrophils (%) (Auto) 64 % (31-73) 78 % (31-73) Lymphocytes (%) (Auto) 28 % (24-48) 18 % (24-48) Monocytes (%) (Auto) 5 % (0-9) 2 % (0-9) Eosinophils (%) (Auto) 2 % (0-3) 1 % (0-3) Basophils (%) (Auto) 2 % (0-3) 1 % (0-3) Neutrophils # (Auto) 2.7 x10^3/uL (1.8-7.7) 4.4 x10^3/uL (1.8-7.7) Lymphocytes # (Auto) 1.2 x10^3/uL (1.0-4.8) 1.0 x10^3/uL (1.0-4.8) Monocytes # (Auto) 0.2 x10^3/uL (0.0-1.1) 0.1 x10^3/uL (0.0-1.1) Eosinophils # (Auto) 0.1 x10^3/uL (0.0-0.7) 0.1 x10^3/uL (0.0-0.7) Basophils # (Auto) 0.1 x10^3/uL (0.0-0.2) 0.0 x10^3/uL (0.0-0.2) Sodium Level 132 mmol/L (136-145) 130 mmol/L (136-145) Potassium Level 4.7 mmol/L (3.5-5.1) 4.6 mmol/L (3.5-5.1) Chloride Level 101 mmol/L (98-107) 99 mmol/L (98-107) Carbon Dioxide Level 19 mmol/L (21-32) 17 mmol/L (21-32) Anion Gap 12 (6-14) 14 (6-14) Blood Urea Nitrogen 38 mg/dL (7-20) 40 mg/dL (7-20) Creatinine 0.9 mg/dL (0.6-1.0) 1.0 mg/dL (0.6-1.0) Estimated GFR (Cockcroft-Gault) 63.9 56.6 Glucose Level 119 mg/dL (70-99) 121 mg/dL (70-99) Calcium Level 8.2 mg/dL (8.5-10.1) 8.9 mg/dL (8.5-10.1) Glucose (Fingerstick) 115 mg/dL (70-99) 143 mg/dL (70-99) Test 07/14/21 12:01 Glucose (Fingerstick) 134 mg/dL (70-99) Comment Review of Relevant I have reviewed the following items khai (where applicable) has been applied. Justifications for Admission Other Justification BENEDICTO MARISCAL MD Jul 14, 2021 13:03
[2021-07-14 13:27] LABS: PLT ESTIMATE DECREASED (ADEQUATE)
[2021-07-14 15:00] VITALS: BP 123/74
[2021-07-14] MEDS: cefTRIAXone IV Push 1 GM VIAL. IVP SCH (15:50)
[2021-07-14 19:00] VITALS: BP 102/63
[2021-07-14 23:04] VITALS: BP 144/84
[2021-07-15] MEDS: AA 4.25 %/CALCIUM/LYTES/D5W 1,000 ML IV SCH ×2 (00:54→13:50)
[2021-07-15 03:16] VITALS: BP 115/70
[2021-07-15] MEDS: LEVOTHYROXINE 100 MCG TABLET PO SCH (05:40)
[2021-07-15 05:57] LABS: BASO % 1 % (0-3); EOS % 1 % (0-3); HEMATOCRIT 26.5 % (36.0-47.0); HEMOGLOBIN 9.1 g/dL (12.0-15.5); LYMPH # 0.7 x10^3/uL (1.0-4.8); LYMPH % 14 % (24-48); MEAN CORPUSCULAR HEMOGLOBIN 28 pg (25-35); MEAN CORPUSCULAR HGB CONC 34 g/dL (31-37); MEAN CORPUSCULAR VOLUME 83 fL (79-100); MONO # 0.1 x10^3/uL (0.0-1.1); MONO % 1 % (0-9); NEUT # 4.1 x10^3/uL (1.8-7.7); NEUT % 83 % (31-73); PLATELET COUNT 40 x10^3/uL (140-400); RED BLOOD COUNT 3.22 x10^6/uL (3.50-5.40); RED CELL DISTRIBUTION WIDTH 15.3 % (11.5-14.5)
[2021-07-15 06:04] LABS: ALBUMIN 2.3 g/dL (3.4-5.0); ALBUMIN/GLOBULIN RATIO 0.7 (1.0-1.7); CALCIUM 8.7 mg/dL (8.5-10.1); CREATININE 1.3 mg/dL (0.6-1.0); GFR 41.8; POTASSIUM 4.4 mmol/L (3.5-5.1); TOTAL BILIRUBIN 0.7 mg/dL (0.2-1.0); TOTAL PROTEIN 5.6 g/dL (6.4-8.2)
[2021-07-15 07:00] VITALS: BP 136/74
[2021-07-15] MEDS: INSULIN LISPRO 300 UNITS/3 ML VIAL. SQ SCH ×3 (08:00→17:00)
[2021-07-15] MEDS: VANCOMYCIN 125 MG/2.5 ML ORAL SOLUTION. PO SCH ×4 (08:22→22:24)
[2021-07-15] MEDS: PANTOPRAZOLE IV PUSH 40 MG VIAL. IVP SCH (08:23)
--- NOTE | 2021-07-15 08:52 | PDOC ---
Infectious Disease Note Subjective: Subjective Patient arouses to verbal stimuli, "says feels okay," does not answer any questions Vital Signs: Vital Signs Vital Signs Date Time Temp Pulse Resp B/P (MAP) Pulse Ox O2 Delivery O2 Flow Rate FiO2 07/15/21 07:00 97.5 93 20 136/74 (94) 98 Room Air 97.5 Physical Exam: PHYSICAL EXAM GENERAL: Sleepy, arousable, does not answer most of the questions, cooperative, appears comfortable on O2 by nasal cannula. HEENT: Normocephalic, atraumatic. Anicteric. Oral mucosa dry. NECK: Supple. No tenderness. LUNGS: Clear. HEART: S1, S2. ABDOMEN: Soft, nondistended, nontender. No rebound or guarding. No grimacing on deep palpation. NEUROLOGIC: Lethargic, does not verbalize. EXTREMITIES: No edema, no cyanosis. GENITOURINARY: No Bourgeois in place. PIV looks clean. Medications: Inpatient Meds: Medications reviewed. Labs: Lab Laboratory Tests Test 07/14/21 12:01 07/14/21 16:59 07/14/21 20:36 07/15/21 05:00 Glucose (Fingerstick) 134 mg/dL (70-99) 145 mg/dL (70-99) 142 mg/dL (70-99) White Blood Count 5.0 x10^3/uL (4.0-11.0) Red Blood Count 3.22 x10^6/uL (3.50-5.40) Hemoglobin 9.1 g/dL (12.0-15.5) Hematocrit 26.5 % (36.0-47.0) Mean Corpuscular Volume 83 fL (79-100) Mean Corpuscular Hemoglobin 28 pg (25-35) Mean Corpuscular Hemoglobin Concent 34 g/dL (31-37) Red Cell Distribution Width 15.3 % (11.5-14.5) Platelet Count 40 x10^3/uL (140-400) Neutrophils (%) (Auto) 83 % (31-73) Lymphocytes (%) (Auto) 14 % (24-48) Monocytes (%) (Auto) 1 % (0-9) Eosinophils (%) (Auto) 1 % (0-3) Basophils (%) (Auto) 1 % (0-3) Neutrophils # (Auto) 4.1 x10^3/uL (1.8-7.7) Lymphocytes # (Auto) 0.7 x10^3/uL (1.0-4.8) Monocytes # (Auto) 0.1 x10^3/uL (0.0-1.1) Eosinophils # (Auto) 0.0 x10^3/uL (0.0-0.7) Basophils # (Auto) 0.0 x10^3/uL (0.0-0.2) Sodium Level 132 mmol/L (136-145) Potassium Level 4.4 mmol/L (3.5-5.1) Chloride Level 100 mmol/L (98-107) Carbon Dioxide Level 15 mmol/L (21-32) Anion Gap 17 (6-14) Blood Urea Nitrogen 55 mg/dL (7-20) Creatinine 1.3 mg/dL (0.6-1.0) Estimated GFR (Cockcroft-Gault) 41.8 BUN/Creatinine Ratio 42 (6-20) Glucose Level 140 mg/dL (70-99) Calcium Level 8.7 mg/dL (8.5-10.1) Total Bilirubin 0.7 mg/dL (0.2-1.0) Aspartate Amino Transf (AST/SGOT) 18 U/L (15-37) Alanine Aminotransferase (ALT/SGPT) 37 U/L (14-59) Alkaline Phosphatase 67 U/L (46-116) Total Protein 5.6 g/dL (6.4-8.2) Albumin 2.3 g/dL (3.4-5.0) Albumin/Globulin Ratio 0.7 (1.0-1.7) Test 07/15/21 07:40 Glucose (Fingerstick) 123 mg/dL (70-99) Objective: Assessment: 1. Clostridium difficile colitis. 2. Urinary tract infection. UA not available with hematuria. 3. Status post recent laparoscopic cholecystectomy at [facility] 10 days prior to admission with rectal bleeding. 4. Nausea, vomiting, improving per nurse. 5. Anemia. 6. Hypokalemia. 7. Thrombocytopenia. Worsening 8. Encephalopathy, chronic, likely early onset dementia, Alzheimer's disease. Fluctuating. 9. Abnormal CT interval post-cholecystectomy changes. 10. COVID negative. 11. Hypertension. 12. Severe calorie malnutrition. 13. Inability to self-care. Plan: Plan of Care 1. Continue p.o. vancomycin, Off Flagyl. DC Rocephin as patient has completed 3 days of treatment. Monitor closely off Rocephin and Flagyl 2. Maintain aspiration precaution. 3. Monitor labs and cultures. 4. PT and OT as tolerated. 5. Monitor labs and cultures. 6. GI and neurology team following. 7. Prognosis is poor. SUNIL BARROS MD Jul 15, 2021 08:52
--- NOTE | 2021-07-15 09:59 | PDOC ---
Date of Service: DATE: 07/15/21 TIME: 09:50 Subjective: Subjective: Speech a bit garbled - says "oh I'm alright." Objective: Objective: Reviewed chart - seems like ongoing poor PO intake. On PPN. Vital Signs: Vital Signs Date Time Temp Pulse Resp B/P (MAP) Pulse Ox O2 Delivery O2 Flow Rate FiO2 07/15/21 07:00 97.5 93 20 136/74 (94) 98 Room Air 97.5 Labs: Laboratory Tests Test 07/14/21 12:01 07/14/21 16:59 07/14/21 20:36 07/15/21 05:00 Glucose (Fingerstick) 134 mg/dL 145 mg/dL 142 mg/dL White Blood Count 5.0 x10^3/uL Red Blood Count 3.22 x10^6/uL Hemoglobin 9.1 g/dL Hematocrit 26.5 % Mean Corpuscular Volume 83 fL Mean Corpuscular Hemoglobin 28 pg Mean Corpuscular Hemoglobin Concent 34 g/dL Red Cell Distribution Width 15.3 % Platelet Count 40 x10^3/uL Neutrophils (%) (Auto) 83 % Lymphocytes (%) (Auto) 14 % Monocytes (%) (Auto) 1 % Eosinophils (%) (Auto) 1 % Basophils (%) (Auto) 1 % Neutrophils # (Auto) 4.1 x10^3/uL Lymphocytes # (Auto) 0.7 x10^3/uL Monocytes # (Auto) 0.1 x10^3/uL Eosinophils # (Auto) 0.0 x10^3/uL Basophils # (Auto) 0.0 x10^3/uL Sodium Level 132 mmol/L Potassium Level 4.4 mmol/L Chloride Level 100 mmol/L Carbon Dioxide Level 15 mmol/L Anion Gap 17 Blood Urea Nitrogen 55 mg/dL Creatinine 1.3 mg/dL Estimated GFR (Cockcroft-Gault) 41.8 BUN/Creatinine Ratio 42 Glucose Level 140 mg/dL Calcium Level 8.7 mg/dL Total Bilirubin 0.7 mg/dL Aspartate Amino Transf (AST/SGOT) 18 U/L Alanine Aminotransferase (ALT/SGPT) 37 U/L Alkaline Phosphatase 67 U/L Total Protein 5.6 g/dL Albumin 2.3 g/dL Albumin/Globulin Ratio 0.7 Test 07/15/21 07:40 Glucose (Fingerstick) 123 mg/dL PE: GEN: NAD LUNGS: CTAB HEART: RRR ABD: NABS, S/ND/NT NEURO/PSYCH: awake, more response for me today compared to last week A/P: Suspected dementia, poor PO intake UTI and C Diff - ID following; getting Rocephin and PO vanco Mild anemia, +Hemoccult - not iron or B12 deficient - drift in Hgb from 10 to 9 w/o obvious bleeding Thrombocytopenia Hypothyroidism - refusing some meds COVID negative -- Atbx per ID. Mental status problematic. Justicifation of Admission Dx: Justifications for Admission: Justification of Admission Dx: Yes MAIKOL FELICIANO Jul 15, 2021 09:59
--- NOTE | 2021-07-15 10:53 | PDOC ---
PROGRESS NOTES Date of Service DATE: 07/15/21 TIME: 10:50 Assessment Suspect longstanding dementia, most likely early-onset Alzheimer's disease. This is per the story from the patient's son who has been caring for her for several years as well as the bilateral grasp reflexes. However nurse tells me there are family dynamic issues, 1 daughter says the son is not capable of taking care of the patient and thinks the patient has been perfectly normal all this time (but if she needs someone to care for her, how could she be normal?) Labs I ordered positive for slightly elevated TSH, now on her thyroid medication here in the hospital Metabolic issues including Clostridium difficile colitis, suspected urinary tract infection, leukocytosis, anemia with GI bleeding and hemoperitoneum, hyperbilirubinemia, hyperglycemia, protein calorie malnutrition, thrombocytopenia, hypokalemia, COVID negative, hypertension. Plan Treat medical diseases Holding on additional studies such as repeat CT head, MRI, lumbar puncture Subjective None Objective Vital Signs Date Time Temp Pulse Resp B/P (MAP) Pulse Ox O2 Delivery O2 Flow Rate FiO2 07/15/21 07:00 97.5 93 20 136/74 (94) 98 Room Air 97.5 Intake and Output 07/15/21 07:00 # Voids 4 PHYSICAL EXAM Eyes open, moves a little bit to command, nonverbal PERRL. EOMI. CN: no focal findings. Muscle tone: normal. Muscle strength: 4/5 DTR: 2+ Plantar reflex: Flexor Gait: not examined in bed. Sensory exam: no abnormal findings. No cerebellar signs elicited. Review of Relevant I have reviewed the following items khai (where applicable) has been applied. Labs Laboratory Tests Test 07/13/21 11:46 07/13/21 15:30 07/13/21 16:46 07/14/21 04:30 Glucose (Fingerstick) 112 mg/dL (70-99) 115 mg/dL (70-99) White Blood Count 4.2 x10^3/uL (4.0-11.0) 5.6 x10^3/uL (4.0-11.0) Red Blood Count 3.60 x10^6/uL (3.50-5.40) 3.58 x10^6/uL (3.50-5.40) Hemoglobin 10.2 g/dL (12.0-15.5) 10.2 g/dL (12.0-15.5) Hematocrit 32.0 % (36.0-47.0) 30.6 % (36.0-47.0) Mean Corpuscular Volume 88 fL (79-100) 86 fL (79-100) Mean Corpuscular Hemoglobin 28 pg (25-35) 28 pg (25-35) Mean Corpuscular Hemoglobin Concent 32 g/dL (31-37) 33 g/dL (31-37) Red Cell Distribution Width 16.0 % (11.5-14.5) 15.7 % (11.5-14.5) Platelet Count 65 x10^3/uL (140-400) 60 x10^3/uL (140-400) Neutrophils (%) (Auto) 64 % (31-73) 78 % (31-73) Lymphocytes (%) (Auto) 28 % (24-48) 18 % (24-48) Monocytes (%) (Auto) 5 % (0-9) 2 % (0-9) Eosinophils (%) (Auto) 2 % (0-3) 1 % (0-3) Basophils (%) (Auto) 2 % (0-3) 1 % (0-3) Neutrophils # (Auto) 2.7 x10^3/uL (1.8-7.7) 4.4 x10^3/uL (1.8-7.7) Lymphocytes # (Auto) 1.2 x10^3/uL (1.0-4.8) 1.0 x10^3/uL (1.0-4.8) Monocytes # (Auto) 0.2 x10^3/uL (0.0-1.1) 0.1 x10^3/uL (0.0-1.1) Eosinophils # (Auto) 0.1 x10^3/uL (0.0-0.7) 0.1 x10^3/uL (0.0-0.7) Basophils # (Auto) 0.1 x10^3/uL (0.0-0.2) 0.0 x10^3/uL (0.0-0.2) Sodium Level 132 mmol/L (136-145) 130 mmol/L (136-145) Potassium Level 4.7 mmol/L (3.5-5.1) 4.6 mmol/L (3.5-5.1) Chloride Level 101 mmol/L (98-107) 99 mmol/L (98-107) Carbon Dioxide Level 19 mmol/L (21-32) 17 mmol/L (21-32) Anion Gap 12 (6-14) 14 (6-14) Blood Urea Nitrogen 38 mg/dL (7-20) 40 mg/dL (7-20) Creatinine 0.9 mg/dL (0.6-1.0) 1.0 mg/dL (0.6-1.0) Estimated GFR (Cockcroft-Gault) 63.9 56.6 Glucose Level 119 mg/dL (70-99) 121 mg/dL (70-99) Calcium Level 8.2 mg/dL (8.5-10.1) 8.9 mg/dL (8.5-10.1) Platelet Estimate Decreased (ADEQUATE) Test 07/14/21 08:00 07/14/21 12:01 07/14/21 16:59 07/14/21 20:36 Glucose (Fingerstick) 143 mg/dL (70-99) 134 mg/dL (70-99) 145 mg/dL (70-99) 142 mg/dL (70-99) Test 07/15/21 05:00 07/15/21 07:40 White Blood Count 5.0 x10^3/uL (4.0-11.0) Red Blood Count 3.22 x10^6/uL (3.50-5.40) Hemoglobin 9.1 g/dL (12.0-15.5) Hematocrit 26.5 % (36.0-47.0) Mean Corpuscular Volume 83 fL (79-100) Mean Corpuscular Hemoglobin 28 pg (25-35) Mean Corpuscular Hemoglobin Concent 34 g/dL (31-37) Red Cell Distribution Width 15.3 % (11.5-14.5) Platelet Count 40 x10^3/uL (140-400) Neutrophils (%) (Auto) 83 % (31-73) Lymphocytes (%) (Auto) 14 % (24-48) Monocytes (%) (Auto) 1 % (0-9) Eosinophils (%) (Auto) 1 % (0-3) Basophils (%) (Auto) 1 % (0-3) Neutrophils # (Auto) 4.1 x10^3/uL (1.8-7.7) Lymphocytes # (Auto) 0.7 x10^3/uL (1.0-4.8) Monocytes # (Auto) 0.1 x10^3/uL (0.0-1.1) Eosinophils # (Auto) 0.0 x10^3/uL (0.0-0.7) Basophils # (Auto) 0.0 x10^3/uL (0.0-0.2) Sodium Level 132 mmol/L (136-145) Potassium Level 4.4 mmol/L (3.5-5.1) Chloride Level 100 mmol/L (98-107) Carbon Dioxide Level 15 mmol/L (21-32) Anion Gap 17 (6-14) Blood Urea Nitrogen 55 mg/dL (7-20) Creatinine 1.3 mg/dL (0.6-1.0) Estimated GFR (Cockcroft-Gault) 41.8 BUN/Creatinine Ratio 42 (6-20) Glucose Level 140 mg/dL (70-99) Calcium Level 8.7 mg/dL (8.5-10.1) Total Bilirubin 0.7 mg/dL (0.2-1.0) Aspartate Amino Transf (AST/SGOT) 18 U/L (15-37) Alanine Aminotransferase (ALT/SGPT) 37 U/L (14-59) Alkaline Phosphatase 67 U/L (46-116) Total Protein 5.6 g/dL (6.4-8.2) Albumin 2.3 g/dL (3.4-5.0) Albumin/Globulin Ratio 0.7 (1.0-1.7) Glucose (Fingerstick) 123 mg/dL (70-99) Laboratory Tests Test 07/14/21 12:01 07/14/21 16:59 07/14/21 20:36 07/15/21 05:00 Glucose (Fingerstick) 134 mg/dL (70-99) 145 mg/dL (70-99) 142 mg/dL (70-99) White Blood Count 5.0 x10^3/uL (4.0-11.0) Red Blood Count 3.22 x10^6/uL (3.50-5.40) Hemoglobin 9.1 g/dL (12.0-15.5) Hematocrit 26.5 % (36.0-47.0) Mean Corpuscular Volume 83 fL (79-100) Mean Corpuscular Hemoglobin 28 pg (25-35) Mean Corpuscular Hemoglobin Concent 34 g/dL (31-37) Red Cell Distribution Width 15.3 % (11.5-14.5) Platelet Count 40 x10^3/uL (140-400) Neutrophils (%) (Auto) 83 % (31-73) Lymphocytes (%) (Auto) 14 % (24-48) Monocytes (%) (Auto) 1 % (0-9) Eosinophils (%) (Auto) 1 % (0-3) Basophils (%) (Auto) 1 % (0-3) Neutrophils # (Auto) 4.1 x10^3/uL (1.8-7.7) Lymphocytes # (Auto) 0.7 x10^3/uL (1.0-4.8) Monocytes # (Auto) 0.1 x10^3/uL (0.0-1.1) Eosinophils # (Auto) 0.0 x10^3/uL (0.0-0.7) Basophils # (Auto) 0.0 x10^3/uL (0.0-0.2) Sodium Level 132 mmol/L (136-145) Potassium Level 4.4 mmol/L (3.5-5.1) Chloride Level 100 mmol/L (98-107) Carbon Dioxide Level 15 mmol/L (21-32) Anion Gap 17 (6-14) Blood Urea Nitrogen 55 mg/dL (7-20) Creatinine 1.3 mg/dL (0.6-1.0) Estimated GFR (Cockcroft-Gault) 41.8 BUN/Creatinine Ratio 42 (6-20) Glucose Level 140 mg/dL (70-99) Calcium Level 8.7 mg/dL (8.5-10.1) Total Bilirubin 0.7 mg/dL (0.2-1.0) Aspartate Amino Transf (AST/SGOT) 18 U/L (15-37) Alanine Aminotransferase (ALT/SGPT) 37 U/L (14-59) Alkaline Phosphatase 67 U/L (46-116) Total Protein 5.6 g/dL (6.4-8.2) Albumin 2.3 g/dL (3.4-5.0) Albumin/Globulin Ratio 0.7 (1.0-1.7) Test 07/15/21 07:40 Glucose (Fingerstick) 123 mg/dL (70-99) Microbiology 07/11/21 Urine Culture - Final, Complete 07/11/21 Antimicrobic Susceptibility - Final, Complete Medications Current Medications Sodium Chloride 1,000 ml @ 75 mls/hr [id number] IV Last administered on 07/11/21at 08:34; Start 07/09/21 at 18:00; Stop 07/11/21 at 15:39; Status DC Potassium Chloride (Klor-Con) 40 meq 1X ONCE PO Last administered on 07/09/21at 17:54; Start 07/09/21 at 18:00; Stop 07/09/21 at 18:01; Status DC Temazepam (Restoril) 15 mg PRN QHS PRN PO INSOMNIA Last administered on 07/09/21at 20:25; Start 07/09/21 at 17:45 Ondansetron HCl (Zofran) 4 mg PRN Q6HRS PRN IVP NAUSEA/VOMITING Last administered on 07/11/21at 09:48; Start 07/09/21 at 17:45 Pantoprazole Sodium (PROTONIX VIAL for IV PUSH) 40 mg DAILYAC IVP Last administered on 07/11/21at 08:29; Start 07/10/21 at 07:30; Stop 07/11/21 at 09:49; Status DC Amino Acids/ Electrolytes/ Dextrose 1,000 ml @ 80 mls/hr [id number] IV Last administered on 07/15/21at 00:54; Start 07/09/21 at 18:45 Potassium Chloride (Klor-Con) 40 meq 1X ONCE PO Last administered on 07/10/21at 08:34; Start 07/10/21 at 08:00; Stop 07/10/21 at 08:01; Status DC Potassium Chloride (Klor-Con) 40 meq 1X ONCE PO Last administered on 07/11/21at 09:00; Start 07/11/21 at 09:00; Stop 07/11/21 at 09:01; Status DC Potassium Chloride/Water 100 ml @ 50 mls/hr 1X ONCE IV Last administered on 07/11/21at 09:49; Start 07/11/21 at 09:00; Stop 07/11/21 at 10:59; Status DC Pantoprazole Sodium (Protonix) 40 mg DAILYAC PO ; Start 07/12/21 at 07:30; Stop 07/12/21 at 08:16; Status DC Potassium Chloride/Water 100 ml @ 50 mls/hr Q2H IV Last administered on 07/11/21at 13:00; Start 07/11/21 at 11:00; Stop 07/11/21 at 14:59; Status DC Hydralazine HCl (Apresoline Inj) 10 mg PRN Q4HRS PRN IVP ELEVATED BP, SEE COMMENTS Last administered on 07/11/21at 12:15; Start 07/11/21 at 11:45 Insulin Human Lispro (HumaLOG) 0-9 UNITS TIDWMEALS SQ ; Start 07/11/21 at 17:00 Dextrose (Dextrose 50%-Water Syringe) 12.5 gm PRN Q15MIN PRN IV SEE COMMENTS; Start 07/11/21 at 15:00 Levothyroxine Sodium (Synthroid) 100 mcg DAILY06 PO Last administered on 07/14/21at 09:22; Start 07/12/21 at 06:00 Trazodone HCl (Desyrel) 50 mg QHS PO ; Start 07/11/21 at 21:00 Levothyroxine Sodium 50 mcg/ Sodium Chloride 5 ml @ 50 mls/hr 1X ONCE IVP Last administered on 07/12/21at 09:43; Start 07/12/21 at 08:15; Stop 07/12/21 at 08:21; Status DC Pantoprazole Sodium (PROTONIX VIAL for IV PUSH) 40 mg DAILYAC IVP Last administered on 07/15/21at 08:23; Start 07/12/21 at 08:30 Ceftriaxone Sodium (Rocephin) 1 gm Q24H IVP Last administered on 07/14/21at 15:50; Start 07/12/21 at 15:00 Vancomycin HCl (Vancomycin Oral Solution) 125 mg [id number] PO Last administered on 07/15/21at 08:22; Start 07/12/21 at 17:00 Metronidazole 100 ml @ 100 mls/hr Q8HRS IV Last administered on 07/13/21at 05:59; Start 07/12/21 at 22:00; Stop 07/13/21 at 11:12; Status DC Metronidazole 100 ml @ 100 mls/hr 1X ONCE IV Last administered on 07/12/21at 16:27; Start 07/12/21 at 16:00; Stop 07/12/21 at 16:59; Status DC Active Scripts Active Reported Trazodone Hcl 50 Mg Tablet 1 Tab PO QHS Ondansetron Odt (Ondansetron) 4 Mg Tab.rapdis 8 Mg PO PRN Q8HRS PRN Metformin Hcl 1,000 Mg Tablet 1,000 Mg PO BIDWMEALS Meclizine Hcl 25 Mg Tablet 1 Tab PO PRN TID Levothyroxine Sodium 25 Mcg Tablet 1 Tab PO DAILY Levothyroxine Sodium 100 Mcg Tablet 1 Tab PO DAILY Jardiance (Empagliflozin) 10 Mg Tablet 10 Mg PO DAILY No Known Medications Prior To Admisstion (Info) Each 1 Each NA Vitals/I & O Vital Sign - Last 24 Hours 07/14/21 07/14/21 07/14/21 07/14/21 11:00 15:00 19:00 20:30 Temp 98.1 97.0 97.5 98.1 97.0 97.5 Pulse 106 100 91 Resp 20 20 20 B/P (MAP) 153/81 (105) 123/74 (90) 102/63 (76) Pulse Ox 100 100 96 O2 Delivery Room Air Room Air Room Air Room Air 07/14/21 07/15/21 07/15/21 23:04 03:16 07:00 Temp 97.7 97.7 97.5 97.7 97.7 97.5 Pulse 90 89 93 Resp 20 18 20 B/P (MAP) 144/84 (104) 115/70 (85) 136/74 (94) Pulse Ox 98 96 98 O2 Delivery Room Air Room Air Room Air Justicifation of Admission Dx: Justifications for Admission: Justification of Admission Dx: Yes KWASI KRISHNAMURTHY MD Jul 15, 2021 10:53
[2021-07-15 11:00] VITALS: BP 113/41
--- NOTE | 2021-07-15 12:10 | NUR ---
SS following up with discharge planning. SS reviewed pt chart and discussed with pt RN. Pt is currently on room air. Pt remains on Clinimix at this time and not wanting to take any PO intake at this time. Pt on PO Vancomycin. CDIFF positive. PT/OT recommended assisted unit. SS will continue to follow for discharge planning.
--- NOTE | 2021-07-15 13:18 | PDOC ---
[employer] PROGRESS NOTE Date of Service DOS: DATE: 07/15/21 TIME: 13:14 Chief Complaint Chief Complaint acute metabolic encephalopathy, UTI, c. diff. colilits, diarrhea, chronic encephalopathy, Likely early onset Dementia, Alzheimers disease N/V/D on admit - improved blood loss Anemia - +Hemoccult, lower GI bleed, improved Thrombocytopenia - suspect from liver disease Abnormal CT - interval post cholecystectomy changes Recent cholecystectomy COVID negative HTN, hypokalemia - check mag, replace Severe malnutriton POA, ALbumin 2.8 down to 2.5 History of Present Illness History of Present Illness Ms Murphy is a 60-year-old female who had a recent laparoscopic cholecystectomy at [facility] 10 days ago, presented to the ER at [facility] with some rectal ble eding. She also has some nausea, vomiting, and diarrhea. She has been confused and unable to care for herself at home. hemoglobin, was down to 11.6 from 15.4 just a few days ago. She also has hypokalemia and thrombocytopenia. 07/14, stil lethargic, reviewed with RN, they are getting the PO vanc in her, she is swallowing, not much else for PO intake, on PPN cont hte PO vanc - has gotten IV flagyl , on IV rocephin for UTI still out, poor PO, will need to be fed PO, could consider NG for meds if not imrpoving 07/15/2021 Patient seen examined bedside. Arousable to questions but only able to respond with one-word answers. Continue p.o. vancomycin per ID. DC Rocephin and Flagyl. Continue with parental nutrition as patient is not tolerating p.o. intake. Pending SNF placement. Patient's chart, labs, images were reviewed and discussed with RN Vitals/I&O Vitals/I&O: Vital Signs Date Time Temp Pulse Resp B/P (MAP) Pulse Ox O2 Delivery O2 Flow Rate FiO2 07/15/21 11:00 97.4 99 24 113/41 (65) 99 Room Air 97.4 Physical Exam Physical Exam: GENERAL: Sleepy, arousable, does not answer most of the questions, cooperative, appears comfortable on O2 by nasal cannula. HEENT: Normocephalic, atraumatic. Anicteric. Oral mucosa dry. NECK: Supple. No tenderness. LUNGS: Clear. HEART: S1, S2. ABDOMEN: Soft, nondistended, nontender. No rebound or guarding. No grimacing on deep palpation. NEUROLOGIC: Lethargic, does not verbalize. EXTREMITIES: No edema, no cyanosis. GENITOURINARY: No Bourgeois in place. PIV looks clean. General: Alert, Oriented X3, Cooperative, No acute distress Heart: Regular rate Lungs: Clear Abdomen: Normal bowel sounds Extremities: No clubbing, No cyanosis Skin: No rashes, No breakdown Labs Labs: Laboratory Tests Test 07/14/21 16:59 07/14/21 20:36 07/15/21 05:00 07/15/21 07:40 Glucose (Fingerstick) 145 mg/dL (70-99) 142 mg/dL (70-99) 123 mg/dL (70-99) White Blood Count 5.0 x10^3/uL (4.0-11.0) Red Blood Count 3.22 x10^6/uL (3.50-5.40) Hemoglobin 9.1 g/dL (12.0-15.5) Hematocrit 26.5 % (36.0-47.0) Mean Corpuscular Volume 83 fL (79-100) Mean Corpuscular Hemoglobin 28 pg (25-35) Mean Corpuscular Hemoglobin Concent 34 g/dL (31-37) Red Cell Distribution Width 15.3 % (11.5-14.5) Platelet Count 40 x10^3/uL (140-400) Neutrophils (%) (Auto) 83 % (31-73) Lymphocytes (%) (Auto) 14 % (24-48) Monocytes (%) (Auto) 1 % (0-9) Eosinophils (%) (Auto) 1 % (0-3) Basophils (%) (Auto) 1 % (0-3) Neutrophils # (Auto) 4.1 x10^3/uL (1.8-7.7) Lymphocytes # (Auto) 0.7 x10^3/uL (1.0-4.8) Monocytes # (Auto) 0.1 x10^3/uL (0.0-1.1) Eosinophils # (Auto) 0.0 x10^3/uL (0.0-0.7) Basophils # (Auto) 0.0 x10^3/uL (0.0-0.2) Sodium Level 132 mmol/L (136-145) Potassium Level 4.4 mmol/L (3.5-5.1) Chloride Level 100 mmol/L (98-107) Carbon Dioxide Level 15 mmol/L (21-32) Anion Gap 17 (6-14) Blood Urea Nitrogen 55 mg/dL (7-20) Creatinine 1.3 mg/dL (0.6-1.0) Estimated GFR (Cockcroft-Gault) 41.8 BUN/Creatinine Ratio 42 (6-20) Glucose Level 140 mg/dL (70-99) Calcium Level 8.7 mg/dL (8.5-10.1) Total Bilirubin 0.7 mg/dL (0.2-1.0) Aspartate Amino Transf (AST/SGOT) 18 U/L (15-37) Alanine Aminotransferase (ALT/SGPT) 37 U/L (14-59) Alkaline Phosphatase 67 U/L (46-116) Total Protein 5.6 g/dL (6.4-8.2) Albumin 2.3 g/dL (3.4-5.0) Albumin/Globulin Ratio 0.7 (1.0-1.7) Test 07/15/21 10:30 07/15/21 11:40 Red Blood Count 3.59 x10^6/uL (3.50-5.70) Absolute Reticulocyte Count 0.026 x10^6/uL (0.020-0.120) Percent Reticulocyte Count 0.7 % (0.5-2.3) Immature Reticulocyte Fraction < 0.09 (0.20-0.60) Prothrombin Time 13.0 SEC (11.7-14.0) Prothromb Time International Ratio 1.0 (0.8-1.1) Glucose (Fingerstick) 126 mg/dL (70-99) Comment Review of Relevant I have reviewed the following items khai (where applicable) has been applied. Justifications for Admission Other Justification DEBBIE DSOUZA MD Jul 15, 2021 13:18
[2021-07-15 15:00] VITALS: BP 126/72
[2021-07-15 19:00] VITALS: BP 136/72
[2021-07-15] MEDS: traZODone 50 MG TABLET. PO SCH (21:00)
[2021-07-15 22:47] VITALS: BP 138/69
[2021-07-16 03:00] VITALS: BP 142/64
[2021-07-16] MEDS: AA 4.25 %/CALCIUM/LYTES/D5W 1,000 ML IV SCH ×2 (03:27→13:15)
[2021-07-16 03:59] VITALS: BP 155/78
[2021-07-16] MEDS: LEVOTHYROXINE 100 MCG TABLET PO SCH (05:50)
[2021-07-16] MEDS: PANTOPRAZOLE IV PUSH 40 MG VIAL. IVP SCH (05:56)
[2021-07-16 07:00] VITALS: BP 96/61
[2021-07-16 07:42] LABS: BASO % 1 % (0-3); EOS % 1 % (0-3); HEMATOCRIT 26.5 % (36.0-47.0); HEMOGLOBIN 8.9 g/dL (12.0-15.5); LYMPH # 1.1 x10^3/uL (1.0-4.8); LYMPH % 30 % (24-48); MEAN CORPUSCULAR HEMOGLOBIN 28 pg (25-35); MEAN CORPUSCULAR HGB CONC 33 g/dL (31-37); MEAN CORPUSCULAR VOLUME 84 fL (79-100); MONO % 1 % (0-9); NEUT # 2.4 x10^3/uL (1.8-7.7); NEUT % 66 % (31-73); RED BLOOD COUNT 3.17 x10^6/uL (3.50-5.40); RED CELL DISTRIBUTION WIDTH 15.8 % (11.5-14.5); WHITE BLOOD COUNT 3.6 x10^3/uL (4.0-11.0)
[2021-07-16] MEDS: INSULIN LISPRO 300 UNITS/3 ML VIAL. SQ SCH ×3 (08:00→15:46)
[2021-07-16 08:14] LABS: CALCIUM 8.8 mg/dL (8.5-10.1); CREATININE 1.6 mg/dL (0.6-1.0); GFR 32.9; POTASSIUM 5.2 mmol/L (3.5-5.1)
[2021-07-16 08:25] LABS: BASE EXCESS ABG -11 mmol/L (-3-3); HCO3 ABG 15 mmol/L (21-28); PCO2 ABG 33 mmHg (35-46); PO2 ABG 68 mmHg (65-108); SAT O2 ABG 90 % (92-99)
[2021-07-16 08:28] LABS: FIO2 ABG 100 NRM
--- NOTE | 2021-07-16 08:44 | PDOC ---
Infectious Disease Note Subjective: Subjective Patient hypoxic this a.m. now with worsening respiratory status On nonrebreather Agonal breathing ABGs reviewed CBC pending from this a.m. Platelets are dropping Haptoglobin is pending at this time Last bowel movement 07/[address] Adamson Discussed with RN ROS: ROS Unable to obtain Vital Signs: Vital Signs Vital Signs Date Time Temp Pulse Resp B/P (MAP) Pulse Ox O2 Delivery O2 Flow Rate FiO2 07/16/21 03:59 86 16 155/78 (103) 100 Room Air 07/16/21 03:00 97.7 97.7 Physical Exam: PHYSICAL EXAM GENERAL: Obtunded agonal breathing, respiratory distress HEENT: Normocephalic, atraumaticOral mucosa dry. LUNGS: Tachypnea HEART: S1, S2. No murmurs ABDOMEN: Soft, mildly distended NEUROLOGIC: Unable to assess EXTREMITIES: No edema, no cyanosis. GENITOURINARY: No Bourgeois in place. PIV looks clean. Medications: Inpatient Meds: Medications reviewed. Labs: Lab Laboratory Tests Test 07/15/21 10:30 07/15/21 11:40 07/15/21 16:39 07/15/21 18:41 Red Blood Count 3.59 x10^6/uL (3.50-5.70) Absolute Reticulocyte Count 0.026 x10^6/uL (0.020-0.120) Percent Reticulocyte Count 0.7 % (0.5-2.3) Immature Reticulocyte Fraction < 0.09 (0.20-0.60) Haptoglobin 192 mg/dL (33-346) Prothrombin Time 13.0 SEC (11.7-14.0) Prothromb Time International Ratio 1.0 (0.8-1.1) Glucose (Fingerstick) 126 mg/dL (70-99) 108 mg/dL (70-99) 123 mg/dL (70-99) Test 07/16/21 07:10 07/16/21 07:52 07/16/21 08:15 Sodium Level 130 mmol/L (136-145) Potassium Level 5.2 mmol/L (3.5-5.1) Chloride Level 100 mmol/L (98-107) Carbon Dioxide Level 16 mmol/L (21-32) Anion Gap 14 (6-14) Blood Urea Nitrogen 77 mg/dL (7-20) Creatinine 1.6 mg/dL (0.6-1.0) Estimated GFR (Cockcroft-Gault) 32.9 Glucose Level 145 mg/dL (70-99) Calcium Level 8.8 mg/dL (8.5-10.1) Glucose (Fingerstick) 158 mg/dL (70-99) O2 Saturation 90 % (92-99) Arterial Blood pH 7.27 (7.35-7.45) Arterial Blood pCO2 at Patient Temp 33 mmHg (35-46) Arterial Blood pO2 at Patient Temp 68 mmHg (65-108) Arterial Blood HCO3 15 mmol/L (21-28) Arterial Blood Base Excess -11 mmol/L (-3-3) FiO2 100 nrm Objective: Assessment: Severe sepsis Acute hypoxic respiratory failure Altered mental status Encephalopathy likely chronic Recent lap meera C. difficile colitis UTI UA not available with hematuria Status post laparoscopic cholecystectomy at [facility] 10 days ago prior to admission with rectal bleeding Nausea and vomiting on admission Anemia Thrombocytopenia severe Hypokalemia on admission Renal insufficiency Covid negative Abnormal CT abdomen interval postcholecystectomy changes Severe protein calorie malnutrition History of hypertension Plan: Plan of Care CBC pending from this morning BMP noted Add ammonia and lactic acid hepatic panel Blood cultures x2 Start Zosyn and daptomycin first dose now Continue p.o. vancomycin Patient has been off Rocephin since yesterday due to thrombocytopenia, some case reports of hemolytic anemia and thrombocytopenia have been reported Patient may need transfer to ICU depending on final goals of treatment per discussion with family. Dr. Adamson is trying to get in contact with the son to update him on the current medical condition Prognosis very poor SUNIL BARROS MD Jul 16, 2021 08:44
[2021-07-16] MEDS: VANCOMYCIN 125 MG/2.5 ML ORAL SOLUTION. PO SCH ×3 (09:00→15:46)
[2021-07-16 09:31] LABS: PLATELET COUNT 27 x10^3/uL (140-400)
[2021-07-16] MEDS ORDERED: PIPERACILLIN/TAZOBACTAM 3.375 GM in IV NORMAL SALINE 50ML 50 ML IV SCH (10:00)
--- NOTE | 2021-07-16 10:10 | RAD ---
XR ABDOMEN 1V History: Reason: Pain not responding to antibiotic treatment for C.diff / Spl. Instructions: / Histo ry: Technique: Supine views the abdomen. Comparison: CT July 09, 2021 Findings: Air-filled mildly prominent loops of small bowel throughout the abdomen. Air and stool throughout the colon. Surgical clips right upper quadrant. Imaged lung bases are unremarkable. Impression: 1. Mildly prominent air-filled loops of small bowel throughout the abdomen, may represent ileus. If persistent clinical concern, recommend follow-up. Electronically signed by: Sanjeev Yap DO (07/16/2021 10:07 AM) [id number]
--- NOTE | 2021-07-16 10:18 | PDOC ---
PROGRESS NOTES Date of Service DATE: 07/16/21 TIME: 10:17 Assessment Suspect longstanding dementia, most likely early-onset Alzheimer's disease. This is per the story from the patient's son who has been caring for her for several years as well as the bilateral grasp reflexes. However nurse tells me there are family dynamic issues, 1 daughter says the son is not capable of taking care of the patient and thinks the patient has been perfectly normal all this time (but if she needs someone to care for her, how could she be normal?) Labs I ordered positive for slightly elevated TSH, now on her thyroid medication here in the hospital Metabolic issues including Clostridium difficile colitis, suspected urinary tract infection, leukocytosis, anemia with GI bleeding and hemoperitoneum, hyperbilirubinemia, hyperglycemia, protein calorie malnutrition, thrombocytopenia, hypokalemia, COVID negative, hypertension. Plan Treat medical diseases Holding on additional studies such as repeat CT head, MRI, lumbar puncture Agree with fci unit transfer Subjective None Objective Vital Signs Date Time Temp Pulse Resp B/P (MAP) Pulse Ox O2 Delivery O2 Flow Rate FiO2 07/16/21 07:00 98.1 95 24 96/61 (73) 98 NonRebreather Mask 98.1 PHYSICAL EXAM Eyes open, moves a little bit to command, moans some nonverbal replies PERRL. EOMI. CN: no focal findings. Muscle tone: normal. Muscle strength: 4/5 DTR: 2+ Plantar reflex: Flexor Gait: not examined in bed. Sensory exam: no abnormal findings. No cerebellar signs elicited. Review of Relevant I have reviewed the following items khai (where applicable) has been applied. Labs Laboratory Tests Test 07/14/21 12:01 07/14/21 16:59 07/14/21 20:36 07/15/21 05:00 Glucose (Fingerstick) 134 mg/dL (70-99) 145 mg/dL (70-99) 142 mg/dL (70-99) White Blood Count 5.0 x10^3/uL (4.0-11.0) Red Blood Count 3.22 x10^6/uL (3.50-5.40) Hemoglobin 9.1 g/dL (12.0-15.5) Hematocrit 26.5 % (36.0-47.0) Mean Corpuscular Volume 83 fL (79-100) Mean Corpuscular Hemoglobin 28 pg (25-35) Mean Corpuscular Hemoglobin Concent 34 g/dL (31-37) Red Cell Distribution Width 15.3 % (11.5-14.5) Platelet Count 40 x10^3/uL (140-400) Neutrophils (%) (Auto) 83 % (31-73) Lymphocytes (%) (Auto) 14 % (24-48) Monocytes (%) (Auto) 1 % (0-9) Eosinophils (%) (Auto) 1 % (0-3) Basophils (%) (Auto) 1 % (0-3) Neutrophils # (Auto) 4.1 x10^3/uL (1.8-7.7) Lymphocytes # (Auto) 0.7 x10^3/uL (1.0-4.8) Monocytes # (Auto) 0.1 x10^3/uL (0.0-1.1) Eosinophils # (Auto) 0.0 x10^3/uL (0.0-0.7) Basophils # (Auto) 0.0 x10^3/uL (0.0-0.2) Sodium Level 132 mmol/L (136-145) Potassium Level 4.4 mmol/L (3.5-5.1) Chloride Level 100 mmol/L (98-107) Carbon Dioxide Level 15 mmol/L (21-32) Anion Gap 17 (6-14) Blood Urea Nitrogen 55 mg/dL (7-20) Creatinine 1.3 mg/dL (0.6-1.0) Estimated GFR (Cockcroft-Gault) 41.8 BUN/Creatinine Ratio 42 (6-20) Glucose Level 140 mg/dL (70-99) Calcium Level 8.7 mg/dL (8.5-10.1) Total Bilirubin 0.7 mg/dL (0.2-1.0) Aspartate Amino Transf (AST/SGOT) 18 U/L (15-37) Alanine Aminotransferase (ALT/SGPT) 37 U/L (14-59) Alkaline Phosphatase 67 U/L (46-116) Total Protein 5.6 g/dL (6.4-8.2) Albumin 2.3 g/dL (3.4-5.0) Albumin/Globulin Ratio 0.7 (1.0-1.7) Test 07/15/21 07:40 07/15/21 10:30 07/15/21 11:40 07/15/21 16:39 Glucose (Fingerstick) 123 mg/dL (70-99) 126 mg/dL (70-99) 108 mg/dL (70-99) Red Blood Count 3.59 x10^6/uL (3.50-5.70) Absolute Reticulocyte Count 0.026 x10^6/uL (0.020-0.120) Percent Reticulocyte Count 0.7 % (0.5-2.3) Immature Reticulocyte Fraction < 0.09 (0.20-0.60) Haptoglobin 192 mg/dL (33-346) Prothrombin Time 13.0 SEC (11.7-14.0) Prothromb Time International Ratio 1.0 (0.8-1.1) Test 07/15/21 18:41 07/16/21 07:10 07/16/21 07:52 07/16/21 08:15 Glucose (Fingerstick) 123 mg/dL (70-99) 158 mg/dL (70-99) White Blood Count 3.6 x10^3/uL (4.0-11.0) Red Blood Count 3.17 x10^6/uL (3.50-5.40) Hemoglobin 8.9 g/dL (12.0-15.5) Hematocrit 26.5 % (36.0-47.0) Mean Corpuscular Volume 84 fL (79-100) Mean Corpuscular Hemoglobin 28 pg (25-35) Mean Corpuscular Hemoglobin Concent 33 g/dL (31-37) Red Cell Distribution Width 15.8 % (11.5-14.5) Platelet Count 27 x10^3/uL (140-400) Neutrophils (%) (Auto) 66 % (31-73) Lymphocytes (%) (Auto) 30 % (24-48) Monocytes (%) (Auto) 1 % (0-9) Eosinophils (%) (Auto) 1 % (0-3) Basophils (%) (Auto) 1 % (0-3) Neutrophils # (Auto) 2.4 x10^3/uL (1.8-7.7) Lymphocytes # (Auto) 1.1 x10^3/uL (1.0-4.8) Monocytes # (Auto) 0.0 x10^3/uL (0.0-1.1) Eosinophils # (Auto) 0.0 x10^3/uL (0.0-0.7) Basophils # (Auto) 0.0 x10^3/uL (0.0-0.2) Sodium Level 130 mmol/L (136-145) Potassium Level 5.2 mmol/L (3.5-5.1) Chloride Level 100 mmol/L (98-107) Carbon Dioxide Level 16 mmol/L (21-32) Anion Gap 14 (6-14) Blood Urea Nitrogen 77 mg/dL (7-20) Creatinine 1.6 mg/dL (0.6-1.0) Estimated GFR (Cockcroft-Gault) 32.9 Glucose Level 145 mg/dL (70-99) Calcium Level 8.8 mg/dL (8.5-10.1) O2 Saturation 90 % (92-99) Arterial Blood pH 7.27 (7.35-7.45) Arterial Blood pCO2 at Patient Temp 33 mmHg (35-46) Arterial Blood pO2 at Patient Temp 68 mmHg (65-108) Arterial Blood HCO3 15 mmol/L (21-28) Arterial Blood Base Excess -11 mmol/L (-3-3) FiO2 100 nrm Laboratory Tests Test 07/15/21 10:30 07/15/21 11:40 07/15/21 16:39 07/15/21 18:41 Red Blood Count 3.59 x10^6/uL (3.50-5.70) Absolute Reticulocyte Count 0.026 x10^6/uL (0.020-0.120) Percent Reticulocyte Count 0.7 % (0.5-2.3) Immature Reticulocyte Fraction < 0.09 (0.20-0.60) Haptoglobin 192 mg/dL (33-346) Prothrombin Time 13.0 SEC (11.7-14.0) Prothromb Time International Ratio 1.0 (0.8-1.1) Glucose (Fingerstick) 126 mg/dL (70-99) 108 mg/dL (70-99) 123 mg/dL (70-99) Test 07/16/21 07:10 07/16/21 07:52 07/16/21 08:15 White Blood Count 3.6 x10^3/uL (4.0-11.0) Red Blood Count 3.17 x10^6/uL (3.50-5.40) Hemoglobin 8.9 g/dL (12.0-15.5) Hematocrit 26.5 % (36.0-47.0) Mean Corpuscular Volume 84 fL (79-100) Mean Corpuscular Hemoglobin 28 pg (25-35) Mean Corpuscular Hemoglobin Concent 33 g/dL (31-37) Red Cell Distribution Width 15.8 % (11.5-14.5) Platelet Count 27 x10^3/uL (140-400) Neutrophils (%) (Auto) 66 % (31-73) Lymphocytes (%) (Auto) 30 % (24-48) Monocytes (%) (Auto) 1 % (0-9) Eosinophils (%) (Auto) 1 % (0-3) Basophils (%) (Auto) 1 % (0-3) Neutrophils # (Auto) 2.4 x10^3/uL (1.8-7.7) Lymphocytes # (Auto) 1.1 x10^3/uL (1.0-4.8) Monocytes # (Auto) 0.0 x10^3/uL (0.0-1.1) Eosinophils # (Auto) 0.0 x10^3/uL (0.0-0.7) Basophils # (Auto) 0.0 x10^3/uL (0.0-0.2) Sodium Level 130 mmol/L (136-145) Potassium Level 5.2 mmol/L (3.5-5.1) Chloride Level 100 mmol/L (98-107) Carbon Dioxide Level 16 mmol/L (21-32) Anion Gap 14 (6-14) Blood Urea Nitrogen 77 mg/dL (7-20) Creatinine 1.6 mg/dL (0.6-1.0) Estimated GFR (Cockcroft-Gault) 32.9 Glucose Level 145 mg/dL (70-99) Calcium Level 8.8 mg/dL (8.5-10.1) Glucose (Fingerstick) 158 mg/dL (70-99) O2 Saturation 90 % (92-99) Arterial Blood pH 7.27 (7.35-7.45) Arterial Blood pCO2 at Patient Temp 33 mmHg (35-46) Arterial Blood pO2 at Patient Temp 68 mmHg (65-108) Arterial Blood HCO3 15 mmol/L (21-28) Arterial Blood Base Excess -11 mmol/L (-3-3) FiO2 100 nrm Microbiology 07/11/21 Urine Culture - Final, Complete 07/11/21 Antimicrobic Susceptibility - Final, Complete Medications Current Medications Sodium Chloride 1,000 ml @ 75 mls/hr [id number] IV Last administered on 07/11/21at 08:34; Start 07/09/21 at 18:00; Stop 07/11/21 at 15:39; Status DC Potassium Chloride (Klor-Con) 40 meq 1X ONCE PO Last administered on 07/09/21at 17:54; Start 07/09/21 at 18:00; Stop 07/09/21 at 18:01; Status DC Temazepam (Restoril) 15 mg PRN QHS PRN PO INSOMNIA Last administered on 07/09/21at 20:25; Start 07/09/21 at 17:45 Ondansetron HCl (Zofran) 4 mg PRN Q6HRS PRN IVP NAUSEA/VOMITING Last administered on 07/11/21at 09:48; Start 07/09/21 at 17:45 Pantoprazole Sodium (PROTONIX VIAL for IV PUSH) 40 mg DAILYAC IVP Last administered on 07/11/21at 08:29; Start 07/10/21 at 07:30; Stop 07/11/21 at 09:49; Status DC Amino Acids/ Electrolytes/ Dextrose 1,000 ml @ 80 mls/hr [id number] IV Last administered on 07/16/21at 03:27; Start 07/09/21 at 18:45 Potassium Chloride (Klor-Con) 40 meq 1X ONCE PO Last administered on 07/10/21at 08:34; Start 07/10/21 at 08:00; Stop 07/10/21 at 08:01; Status DC Potassium Chloride (Klor-Con) 40 meq 1X ONCE PO Last administered on 07/11/21at 09:00; Start 07/11/21 at 09:00; Stop 07/11/21 at 09:01; Status DC Potassium Chloride/Water 100 ml @ 50 mls/hr 1X ONCE IV Last administered on 07/11/21at 09:49; Start 07/11/21 at 09:00; Stop 07/11/21 at 10:59; Status DC Pantoprazole Sodium (Protonix) 40 mg DAILYAC PO ; Start 07/12/21 at 07:30; Stop 07/12/21 at 08:16; Status DC Potassium Chloride/Water 100 ml @ 50 mls/hr Q2H IV Last administered on 07/11/21at 13:00; Start 07/11/21 at 11:00; Stop 07/11/21 at 14:59; Status DC Hydralazine HCl (Apresoline Inj) 10 mg PRN Q4HRS PRN IVP ELEVATED BP, SEE COM MENTS Last administered on 07/11/21at 12:15; Start 07/11/21 at 11:45 Insulin Human Lispro (HumaLOG) 0-9 UNITS TIDWMEALS SQ ; Start 07/11/21 at 17:00 Dextrose (Dextrose 50%-Water Syringe) 12.5 gm PRN Q15MIN PRN IV SEE COMMENTS; Start 07/11/21 at 15:00 Levothyroxine Sodium (Synthroid) 100 mcg DAILY06 PO Last administered on 07/14/21at 09:22; Start 07/12/21 at 06:00 Trazodone HCl (Desyrel) 50 mg QHS PO ; Start 07/11/21 at 21:00 Levothyroxine Sodium 50 mcg/ Sodium Chloride 5 ml @ 50 mls/hr 1X ONCE IVP Last administered on 07/12/21at 09:43; Start 07/12/21 at 08:15; Stop 07/12/21 at 08:21; Status DC Pantoprazole Sodium (PROTONIX VIAL for IV PUSH) 40 mg DAILYAC IVP Last administered on 07/16/21at 05:56; Start 07/12/21 at 08:30 Ceftriaxone Sodium (Rocephin) 1 gm Q24H IVP Last administered on 07/14/21at 15:50; Start 07/12/21 at 15:00; Stop 07/15/21 at 11:55; Status DC Vancomycin HCl (Vancomycin Oral Solution) 125 mg [id number] PO Last administered on 07/15/21at 22:24; Start 07/12/21 at 17:00 Metronidazole 100 ml @ 100 mls/hr Q8HRS IV Last administered on 07/13/21at 05:59; Start 07/12/21 at 22:00; Stop 07/13/21 at 11:12; Status DC Metronidazole 100 ml @ 100 mls/hr 1X ONCE IV Last administered on 07/12/21at 16:27; Start 07/12/21 at 16:00; Stop 07/12/21 at 16:59; Status DC Piperacillin Sod/ Tazobactam Sod 3.375 gm/Sodium Chloride 50 ml @ 100 mls/hr Q6H IV ; Start 07/16/21 at 10:00 Daptomycin 330 mg/ Sodium Chloride 50 ml @ 100 mls/hr Q24H IV ; Start 07/16/21 at 11:00 Active Scripts Active Reported Trazodone Hcl 50 Mg Tablet 1 Tab PO QHS Ondansetron Odt (Ondansetron) 4 Mg Tab.rapdis 8 Mg PO PRN Q8HRS PRN Metformin Hcl 1,000 Mg Tablet 1,000 Mg PO BIDWMEALS Meclizine Hcl 25 Mg Tablet 1 Tab PO PRN TID Levothyroxine Sodium 25 Mcg Tablet 1 Tab PO DAILY Levothyroxine Sodium 100 Mcg Tablet 1 Tab PO DAILY Jardiance (Empagliflozin) 10 Mg Tablet 10 Mg PO DAILY No Known Medications Prior To Admisstion (Info) Each 1 Each NA Vitals/I & O Vital Sign - Last 24 Hours 07/15/21 07/15/21 07/15/21 07/15/21 11:00 15:00 19:00 20:00 Temp 97.4 97.1 97.6 97.4 97.1 97.6 Pulse 99 87 98 Resp 24 20 18 B/P (MAP) 113/41 (65) 126/72 (90) 136/72 (93) Pulse Ox 99 100 100 O2 Delivery Room Air Room Air Room Air Room Air 07/15/21 07/16/21 07/16/21 07/16/21 22:47 03:00 03:59 07:00 Temp 97.6 97.7 98.1 97.6 97.7 98.1 Pulse 94 90 86 95 Resp 18 18 16 24 B/P (MAP) 138/69 (92) 142/64 (90) 155/78 (103) 96/61 (73) Pulse Ox 100 98 100 98 O2 Delivery Room Air Room Air Room Air NonRebreather Mask Justicifation of Admission Dx: Justifications for Admission: Justification of Admission Dx: Yes KWASI KRISHNAMURTHY MD Jul 16, 2021 10:18
[2021-07-16 10:46] LABS: ALBUMIN 2.5 g/dL (3.4-5.0); DIRECT BILIRUBIN 0.2 mg/dL (0.0-0.2); TOTAL BILIRUBIN 0.8 mg/dL (0.2-1.0); TOTAL PROTEIN 5.9 g/dL (6.4-8.2)
[2021-07-16 11:00] VITALS: BP 84/77
[2021-07-16] MEDS ORDERED: DAPTOmycin (GENERIC) IVPB 330 MG in IV NORMAL SALINE 50ML 50 ML IV SCH (11:00)
--- NOTE | 2021-07-16 11:20 | PDOC ---
Date of Service: DATE: 07/16/21 TIME: 11:11 Objective: Objective: D/w nurse - hypoxic this morning, less responsive, rapid response called. No excessive diarrhea, last stool 07/14? Now NPO (can't give vanco), remains on PPN. Haptoglobin normal, retic low normal. Vital Signs: Vital Signs Date Time Temp Pulse Resp B/P (MAP) Pulse Ox O2 Delivery O2 Flow Rate FiO2 07/16/21 07:00 98.1 95 24 96/61 (73) 98 NonRebreather Mask 98.1 Labs: Laboratory Tests Test 07/15/21 11:40 07/15/21 16:39 07/15/21 18:41 07/16/21 07:52 Glucose (Fingerstick) 126 mg/dL (70-99) 108 mg/dL (70-99) 123 mg/dL (70-99) 158 mg/dL (70-99) Imaging: KUB 07/16 Impression: 1. Mildly prominent air-filled loops of small bowel throughout the abdomen, may represent ileus. If persistent clinical concern, recommend follow-up. PE: GEN: appears chronically ill LUNGS: breathing mask - difficult to assess with expiratory moans HEART: RRR ABD: quiet, soft NEURO/PSYCH: eyes closed A/P: Resp failure UTI and C Diff - interval xray as above Pancytopenia - plt down to 27 today, Rocephin on hold since yesterday Dementia, hypothyroidism, COVID negative -- Goals of care/family discussed per primary, consider hematology opinion. Justicifation of Admission Dx: Justifications for Admission: Justification of Admission Dx: Yes MAIKOL FELICIANO Jul 16, 2021 11:20
--- NOTE | 2021-07-16 11:30 | PDOC ---
[employer] PROGRESS NOTE Date of Service DOS: DATE: 07/16/21 TIME: 11:26 Chief Complaint Chief Complaint Metabolic cephalopathy Possible sepsis UTI C. difficile colitis Diarrhea Thrombocytopenia Abnormal CAT scan Hypertension Hypokalemia Severe malnutrition History of Present Illness History of Present Illness 07/16/2021 Patient seen and examined She appears to be actively dying She had a rapid response last night Now on 100% nonrebreather I called her son twice but no answer Discussed with Dr. William infectious disease Discussed with RN Chart reviewed Ms Murphy is a 60-year-old female who had a recent laparoscopic cholecystectomy at [facility] 10 days ago, presented to the ER at [facility] with some rectal bleeding. She also has some nausea, vomiting, and diarrhea. She has been confused and unable to care for herself at home. hemoglobin, was down to 11.6 from 15.4 just a few days ago. She also has hypokalemia and thrombocytopenia. 07/14, stil lethargic, reviewed with RN, they are getting the PO vanc in her, she is swallowing, not much else for PO intake, on PPN cont hte PO vanc - has gotten IV flagyl , on IV rocephin for UTI still out, poor PO, will need to be fed PO, could consider NG for meds if not imrpoving 07/15/2021 Patient seen examined bedside. Arousable to questions but only able to respond with one-word answers. Continue p.o. vancomycin per ID. DC Rocephin and Flagyl. Continue with parental nutrition as patient is not tolerating p.o. intake. Pending SNF placement. Patient's chart, labs, images were reviewed and discussed with RN Vitals/I&O Vitals/I&O: Vital Signs Date Time Temp Pulse Resp B/P (MAP) Pulse Ox O2 Delivery O2 Flow Rate FiO2 07/16/21 07:00 98.1 95 24 96/61 (73) 98 NonRebreather Mask 98.1 Physical Exam Physical Exam: GENERAL: Obtunded agonal breathing, respiratory distress HEENT: Normocephalic, atraumaticOral mucosa dry. LUNGS: Tachypnea HEART: S1, S2. No murmurs ABDOMEN: Soft, mildly distended NEUROLOGIC: Unable to assess EXTREMITIES: No edema, no cyanosis. GENITOURINARY: No Bourgeois in place. PIV looks clean. General: severe distress Heart: Other (Tachycardic) Lungs: Crackles Abdomen: Normal bowel sounds, No tenderness Extremities: No clubbing, No cyanosis Skin: No rashes, No breakdown Labs Labs: Laboratory Tests Test 07/15/21 11:40 07/15/21 16:39 07/15/21 18:41 07/16/21 07:10 Glucose (Fingerstick) 126 mg/dL (70-99) 108 mg/dL (70-99) 123 mg/dL (70-99) White Blood Count 3.6 x10^3/uL (4.0-11.0) Red Blood Count 3.17 x10^6/uL (3.50-5.40) Hemoglobin 8.9 g/dL (12.0-15.5) Hematocrit 26.5 % (36.0-47.0) Mean Corpuscular Volume 84 fL (79-100) Mean Corpuscular Hemoglobin 28 pg (25-35) Mean Corpuscular Hemoglobin Concent 33 g/dL (31-37) Red Cell Distribution Width 15.8 % (11.5-14.5) Platelet Count 27 x10^3/uL (140-400) Neutrophils (%) (Auto) 66 % (31-73) Lymphocytes (%) (Auto) 30 % (24-48) Monocytes (%) (Auto) 1 % (0-9) Eosinophils (%) (Auto) 1 % (0-3) Basophils (%) (Auto) 1 % (0-3) Neutrophils # (Auto) 2.4 x10^3/uL (1.8-7.7) Lymphocytes # (Auto) 1.1 x10^3/uL (1.0-4.8) Monocytes # (Auto) 0.0 x10^3/uL (0.0-1.1) Eosinophils # (Auto) 0.0 x10^3/uL (0.0-0.7) Basophils # (Auto) 0.0 x10^3/uL (0.0-0.2) Sodium Level 130 mmol/L (136-145) Potassium Level 5.2 mmol/L (3.5-5.1) Chloride Level 100 mmol/L (98-107) Carbon Dioxide Level 16 mmol/L (21-32) Anion Gap 14 (6-14) Blood Urea Nitrogen 77 mg/dL (7-20) Creatinine 1.6 mg/dL (0.6-1.0) Estimated GFR (Cockcroft-Gault) 32.9 Glucose Level 145 mg/dL (70-99) Calcium Level 8.8 mg/dL (8.5-10.1) Test 07/16/21 07:52 07/16/21 08:15 07/16/21 10:15 Glucose (Fingerstick) 158 mg/dL (70-99) O2 Saturation 90 % (92-99) Arterial Blood pH 7.27 (7.35-7.45) Arterial Blood pCO2 at Patient Temp 33 mmHg (35-46) Arterial Blood pO2 at Patient Temp 68 mmHg (65-108) Arterial Blood HCO3 15 mmol/L (21-28) Arterial Blood Base Excess -11 mmol/L (-3-3) FiO2 100 nrm Lactic Acid Level 3.3 mmol/L (0.4-2.0) Total Bilirubin 0.8 mg/dL (0.2-1.0) Direct Bilirubin 0.2 mg/dL (0.0-0.2) Aspartate Amino Transf (AST/SGOT) 18 U/L (15-37) Alanine Aminotransferase (ALT/SGPT) 35 U/L (14-59) Alkaline Phosphatase 70 U/L (46-116) Ammonia 14 mcmol/L (11-34) Total Protein 5.9 g/dL (6.4-8.2) Albumin 2.5 g/dL (3.4-5.0) Assessment and Plan Assessmemt and Plan New respiratory failure (possibly actively dying) Metabolic cephalopathy Possible sepsis UTI C. difficile colitis Diarrhea Thrombocytopenia Abnormal CAT scan Hypertension Hypokalemia Severe malnutrition Plan I am trying to call the son to consider DNR For now we are continuing the same as follows; Antibiotics per infectious disease Continue 100% nonrebreather Cardiac monitoring Duo nebs Home meds if possible DVT prophylaxis She is still full code for now but I think she should probably be DNR we will talk to her son if I can get all of her Prognosis appears terminal Addendum; I finally got a hold of her son walking he states she should be DNR In addition to evaluation and management I spent 31 minutes conversation with the family = in regards to current short-term treatment options as well as long- term treatment options. That includes discussion time with the patient's desire for care and treatment if he suffers a health event that adversely affects his decision-making abilities. Patient is now DNR Comment Review of Relevant I have reviewed the following items khai (where applicable) has been applied. Medications: Current Medications Medications (Trade) Dose Ordered Sig/Josué Route PRN Reason Start Time Stop Time Status Last Admin Dose Admin Piperacillin Sod/ Tazobactam Sod 3.375 gm/Sodium Chloride 50 ml @ 100 mls/hr Q6H IV 07/16/21 10:00 07/16/21 10:20 Justifications for Admission Other Justification RORO RENEE III DO Jul 16, 2021 11:30
[2021-07-16 12:08] LABS: BILIRUBIN,URINE NEGATIVE (NEG); CLARITY,URINE CLEAR; COLOR,URINE AMBER; NITRITE,URINE NEGATIVE (NEG); PH,URINE 5.5 (<5.0-8.0); PROTEIN,URINE 30 mg/dL (NEG-TRACE); UROBILINOGEN,URINE 0.2 mg/dL (0.2 mg/dL)
--- NOTE | 2021-07-16 12:11 | NUR ---
SW following. Discussed with RN, pt from home with son, NRB, NPO. Rapid called this morning on pt. Per Dr. Adamson, pt appears to be actively dying. Dr. Adamson trying to reach pt's son to discuss DNR etc. SW will hold off on SNF discussion/ referrals at this time. SW will continue to follow.
[2021-07-16 12:12] LABS: RBC,URINE >40 /HPF (0-2)
[2021-07-16 12:13] LABS: BACTERIA,URINE FEW /HPF (0-FEW); WBC,URINE RARE /HPF (0-4)
[2021-07-16 15:00] VITALS: BP 61/33
--- NOTE | 2021-07-16 16:45 | NUR ---
pt in room 560 at 1551 this afternoon. Contacted son, Giovanni Argueta([phone]) at 1555 no one answered nor was there a voicemail to leave message, however he did call me back and informed him of his mother's passing. Informed him that he may come and say goodbye this evening to her and then we would need to know what home will [place] [facility] [place] I then called [facility] and she did not qualify for organ transplant. Joon Balderas RN
--- NOTE | 2021-07-17 12:27 | DS ---
DATE OF DISCHARGE: 07/16/2021 SUMMARY ADMISSION DIAGNOSES: Gastrointestinal bleed, recent cholecystectomy at [facility] 10 days prior to admission, nausea, vomiting, diarrhea, weakness, hypokalemia. CAUSE OF : Progression of disease with multiple comorbidities including recent cholecystectomy, probable sepsis, severe metabolic encephalopathy, UTI, C. diff colitis, diarrhea, thrombocytopenia. CONSULTATIONS: Infectious Disease, GI and Neurology. HOSPITAL COURSE: The patient was an elderly female who had had a recent cholecystectomy at [facility]. She presented with a GI bleed and sepsis. We admitted the patient. The above consults were obtained. We gave her IV antibiotics, transfused her. Yesterday, when I saw her and examined her, she had become quite lethargic. She had desaturated, was on nonrebreather. They had called a rapid response earlier in the night. I called the son. He made her DNR and the patient yesterday afternoon. CHRIS DR: Angi TID: [id number]
== END 2021-07-16 19:00 | DRG 871 ==
LOC: EDBD 16:38 → 1 WEST ICU 16:38 → 5 SOUTH 16:59
PROVIDERS: ADMIT Internal Medicine; ATTEND Internal Medicine
DX: A41.9 Sepsis, unspecified organism (principal); E43 Unspecified severe protein-calorie malnutrition; G93.41 Metabolic encephalopathy; J96.01 Acute respiratory failure with hypoxia; K66.1 Hemoperitoneum; K57.91 Diverticulosis of intestine, part unspecified, without perforation or abscess with bleeding; A04.72 Enterocolitis due to Clostridium difficile, not specified as recurrent; D61.818 Other pancytopenia; Z68.1 Body mass index [BMI] 19.9 or less, adult; N39.0 Urinary tract infection, site not specified; E87.6 Hypokalemia; B96.20 Unspecified Escherichia coli [E. coli] as the cause of diseases classified elsewhere; D50.0 Iron deficiency anemia secondary to blood loss (chronic); E03.9 Hypothyroidism, unspecified; E11.65 Type 2 diabetes mellitus with hyperglycemia; E78.5 Hyperlipidemia, unspecified; F02.80 Dementia in other diseases classified elsewhere, unspecified severity, without behavioral disturbance, psychotic disturbance, mood disturbance, and anxiety; F17.210 Nicotine dependence, cigarettes, uncomplicated; G30.0 Alzheimer's disease with early onset; I10 Essential (primary) hypertension; L40.9 Psoriasis, unspecified; N28.9 Disorder of kidney and ureter, unspecified; R65.20 Severe sepsis without septic shock; E80.6 Other disorders of bilirubin metabolism; R94.6 Abnormal results of thyroid function studies; Z20.822 Contact with and (suspected) exposure to COVID-19; Z66 Do not resuscitate; Z83.3 Family history of diabetes mellitus; Z90.49 Acquired absence of other specified parts of digestive tract; Z90.710 Acquired absence of both cervix and uterus
CPT/HCPCS: 36415; 36600; 74018; 80048; 80053; 80076; 80307; 81001; 82140; 82607; 82805; 82962; 83010; 83540; 83550; 83605; 83735; 84443; 85025; 85045; 85379; 85610; 85651; 87040; 87077; 87086; 87186; 87493; 87505; C9113; J0360; J0696; J0878; J1815; J2405; J2543; J3480; J3490; J7030; 97530-GP; 97535-GO; G0378